=== PATIENT | female | born 2000 | race Caucasian/White ===

== ENCOUNTER 2019-04-01 16:12 | Emergency (ER) | payer BC, SELFPAY ==
[2019-04-01 16:18] VITALS: BP 126/84; PULSE 103; RESP 20; TEMP 37.2; O2SAT 100
--- NOTE | 2019-04-01 17:03 | ED.EAR ---
HPI - Ear Problem General Chief complaint: Ear Stated complaint: ear pain Time Seen by Provider: 04/01/19 16:50 Source: patient and RN notes reviewed Mode of arrival: ambulatory History of Present Illness HPI Narrative: Patient presents today with a two-week history of bilateral ear pain, left greater than right. Denies muffled hearing. Reports some cracking and popping in the left ear over the last couple of days. She reports her pain is intermittent and currently rates a 5/10. She has tried no interventions at home prior to arrival. Patient is . MD Complaint: ear pain Related Data Home Medications Medication Instructions Recorded Confirmed PNV cmb#95-ferrous fumarate-FA 1 tablet PO DAILY 04/01/19 04/01/19 [] Allergies Allergy/AdvReac Type Severity Reaction Status Date / Time No Known Allergies Allergy Unverified 11/01/17 14:38 Review of Systems Review of Systems: Narrative: CONSTITUTIONAL: Denies body aches, fever, chills, or sweats. EYES: Denies visual changes, redness, or discharge. ENT: Denies rhinorrhea, congestion, sore throat. + Bilateral ear pain CARDIOVASCULAR: Denies chest pain, palpitations, or edema. RESPIRATORY: Denies cough or dyspnea. GASTROINTESTINAL: Denies abdominal pain, nausea, vomiting, or diarrhea. GENITOURINARY: Denies dysuria or hematuria. SKIN: Denies rash, itching, or wounds. MUSCULOSKELETAL: Denies back pain, joint pain, or myalgia. NEUROLOGIC: Denies headache, numbness, tingling, or weakness. PSYCH: Denies depression or anxiety. PMFSH Comments At time of signature, I have reviewed and agree with nursing past medical, surgical, social and family history unless otherwise noted. Please see nursing chart for further information. There is no relevant family history pertinent to the presenting complaint Exam Narrative: Exam Narrative: GENERAL: Well-appearing, well-nourished, and in no acute distress. HEAD: Normocephalic, atraumatic. EYES: EOMI. No redness or drainage. Conjunctivae normal. ENT: Mucous membranes pink and moist. Nares clear. No rhinorrhea. TMs normal bilaterally. Throat normal. Uvula midline. NECK: Normal AROM. Supple. No lymphadenopathy. CHEST: No respiratory distress. Clear to auscultation. HEART: Regular rate and rhythm. No murmur appreciated. Normal peripheral pulses. EXTREMITIES: Normal range of motion. No edema. SKIN: Warm, dry, no rash. NEURO: No focal deficits. Alert and oriented x3. Gait steady. PSYCH: Normal affect. No signs of depression or anxiety. Course Vital Signs Vital signs: Vital Signs Temperature 98.9 F 04/01/19 16:18 Pulse Rate 103 H 04/01/19 16:18 Respiratory Rate 04/01/19 16:18 Blood Pressure 126/84 04/01/19 16:18 Pulse Oximetry 04/01/19 16:18 Temperature 98.9 F 04/01/19 16:18 Pulse Rate 103 H 04/01/19 16:18 Respiratory Rate 04/01/19 16:18 Blood Pressure 126/84 04/01/19 16:18 Pulse Oximetry 04/01/19 16:18 Reviewed. Pt has been instructed to follow up with her PCP regarding her elevated blood pressure today. Medical Decision Making Differential Diagnosis Differential Diagnosis: Otitis media, otitis externa, ruptured TM, serous otitis, eustachian tube dysfunction Vital Signs Vital Signs: Vital Signs Temperature 98.9 F 04/01/19 16:18 Pulse Rate 103 H 04/01/19 16:18 Respiratory Rate 04/01/19 16:18 Blood Pressure 126/84 04/01/19 16:18 Pulse Oximetry 04/01/19 16:18 Temperature 98.9 F 04/01/19 16:18 Pulse Rate 103 H 04/01/19 16:18 Respiratory Rate 04/01/19 16:18 Blood Pressure 126/84 04/01/19 16:18 Pulse Oximetry 04/01/19 16:18 Critical Care Time Critical Care Time Critical Care Time: No Discharge Plan Discharge Clinical Impression: Acute dysfunction of both eustachian tubes Patient Disposition: Home, Self-Care Condition: Stable Additional Instructions: Use a steroid nasal spray such as Flonase
== END 2019-04-01 17:11 | disposition home or self-care (01) ==
PROVIDERS: Emergency Provider Nurse Practitioner
DX: O99.89 Other specified diseases and conditions complicating pregnancy, childbirth and the puerperium (principal); H69.93 Unspecified Eustachian tube disorder, bilateral; Z3A.10 10 weeks gestation of pregnancy
CPT/HCPCS: 99211; G0463

== ENCOUNTER 2019-04-22 16:17 | Emergency (ER) | payer BC, SELFPAY ==
[2019-04-22 16:23] VITALS: BP 119/71; PULSE 101; RESP 16; TEMP 36.3; O2SAT 100
--- NOTE | 2019-04-22 16:54 | ED.URI ---
HPI - URI/Sore Throat General Chief Complaint: Upper Respiratory Infection Stated Complaint: SINUS CONGESTION Time Seen by Provider: 04/22/19 16:58 Source: patient and RN notes reviewed Mode of arrival: ambulatory Limitations: no limitations History of Present Illness HPI Narrative: 19-year-old female who is 13 weeks presents with concern for left-sided nasal congestion, facial pain, tooth pain, ear pain, discharge. Reports symptoms have been present for several weeks. Reports she was seen here for ear pain at the end of March and has been using Flonase since then with no relief. She MD elicited complaint: nasal congestion Related Data Home Medications Medication Instructions Recorded Confirmed PNV cmb#95-ferrous fumarate-FA 1 tablet PO DAILY 04/01/19 04/01/19 [] Allergies Allergy/AdvReac Type Severity Reaction Status Date / Time No Known Allergies Allergy Unverified 11/01/17 14:38 Review of Systems Review of Systems: Narrative: CONSTITUTIONAL: Denies malaise, chills, sweats, or fever. EYES: Denies visual changes, redness, or discharge. ENT: Reports rhinorrhea, congestion, sinus pain, otalgia. Denies sore throat. CARDIOVASCULAR: Denies chest pain, palpitations, or edema. RESPIRATORY: Denies cough or dyspnea. GASTROINTESTINAL: Denies abdominal pain, nausea, vomiting, diarrhea SKIN: Denies rash or itching. MUSCULOSKELETAL: Denies myalgia. NEUROLOGIC: Denies headache. All systems reviewed & are unremarkable except as noted in HPI and below PMFSH Comments At time of signature, agree with nursing past medical, surgical, social and family history. There is no relevant family history pertinent to the presenting complaint Exam Narrative: Exam Narrative: GENERAL: Well-appearing, well-nourished, and in no acute distress. HEAD: Normocephalic EYES: PERRLA, conjunctivae clear ENT: Nares clear, right-sided turbinates edematous and erythematous, purulent discharge. Right sided sinus tenderness mucous membranes moist. TM pearly sidhu with dull light reflex bilaterally; no tragal tenderness. Oropharynx not erythematous without lesions. Tonsils not enlarged and without exudate, no drooling, no hoarseness, no trismus. Dentition grossly normal. No jaw clicking or popping noted. NECK: Supple. No lymphadenopathy CHEST: Clear to auscultation, breath sounds equal. No wheezing, rhonchi, rales, or stridor. No respiratory distress, speaks in full sentences. HEART: Regular rate and rhythm. No murmur heard. Normal peripheral pulses. SKIN: Warm, dry, no rash. NEURO: Alert and oriented x3. PSYCH: Normal mood and affect Course Course Emergency Course: Patient is aware of diagnosis, understands and agrees to treatment plan. Anticipatory guidance given. Patient agrees to follow-up as directed and is aware of reasons to seek care at the emergency department. Portions of this record may have been created with voice recognition software Vital Signs Vital signs: Vital Signs Temperature 97.4 F L 04/22/19 16:23 Pulse Rate 101 H 04/22/19 16:23 Respiratory Rate 16 04/22/19 16:23 Blood Pressure 119/71 04/22/19 16:23 Pulse Oximetry 100 04/22/19 16:23 Temperature 97.4 F L 04/22/19 16:23 Pulse Rate 101 H 04/22/19 16:23 Respiratory Rate 16 04/22/19 16:23 Blood Pressure 119/71 04/22/19 16:23 Pulse Oximetry 100 04/22/19 16:23 Reviewed. MDM - URI/Sore Throat MDM Narrative Medical decision making narrative: Differential diagnosis considered: Strep pharyngitis, allergic rhinitis, upper respiratory tract infection, sinusitis, rhinosinusitis, nasopharyngitis. viral pharyngitis, otitis media, otitis externa, pneumonia, bronchitis, viral cough syndrome, viral syndrome, and influenza. Exam findings show no acute concerns or changes; patient is non-toxic appearing and is in no distress. Patient is appropriate for outpatient treatment and follow-up. Critical Care Time Critical Care Time Critical Care Time:
== END 2019-04-22 17:14 | disposition home or self-care (01) ==
PROVIDERS: Emergency Provider Nurse Practitioner
DX: J01.90 Acute sinusitis, unspecified (principal)
CPT/HCPCS: 99213; G0463

== ENCOUNTER 2019-05-28 15:20 | Emergency (ER) | payer BC, SELFPAY ==
--- NOTE | ~2019-05-28 | US_ITS ---
EXAMINATION: US right upper quadrant DATE: 05/28/2019 16:31 INDICATION: Right upper quadrant abdominal pain. Nausea. Vomiting. TECHNIQUE: Multiple grayscale and Doppler ultrasound images of the abdomen were obtained. COMPARISON: CT abdomen and pelvis 12/13/2018 FINDINGS: The visualized portions of the head and body of the pancreas are normal. The liver is kamaljit l without focal lesion. There is normal flow in main portal vein. The gallbladder is normal in size. No gallstones or gallbladder wall thickening. There was no sonographic Scott sign. The common duct i s normal and measures 3 mm. IMPRESSION: 1. Normal right upper quadrant ultrasound. Reviewed, dictated and finalized at location [facility].
[2019-05-28 15:27] VITALS: BP 128/69; PULSE 117; RESP 18; TEMP 36.7; O2SAT 100
--- NOTE | 2019-05-28 16:00 | ED.ABDPAIN ---
HPI - Abdominal Pain General Chief Complaint: Abdominal Pain Stated Complaint: ?gb problems-18 wks Time Seen by Provider: 05/28/19 15:30 Source: patient Mode of arrival: ambulatory Limitations: no limitations History of Present Illness HPI narrative: Patient presents with CC of intermittent RUQ pain that has occurred the past two weeks after eating. She reports she told her OBGYN and they stated if she ever had vomiting with the pain to come to the ER. She reports vomiting after breakfast and after lunch today at noon. So she came to the ED. She denies RUQ pain at this time, but she still feels nauseous. Related Data Home Medications Medication Instructions Recorded Confirmed PNV cmb#95-ferrous fumarate-FA 1 tablet PO DAILY 04/01/19 04/01/19 [] Allergies Allergy/AdvReac Type Severity Reaction Status Date / Time No Known Allergies Allergy Verified 05/28/19 15:34 Review of Systems Review of Systems: Narrative: CONSTITUTIONAL: Denies fever, chills, or sweats. EYES: Denies visual changes, redness, or discharge. ENT: Denies rhinorrhea, congestion, sore throat, or otalgia. CARDIOVASCULAR: Denies chest pain, palpitations, or edema. RESPIRATORY: Denies cough or dyspnea. GASTROINTESTINAL: Reports right upper quadrant abdominal pain, nausea, vomiting, denies diarrhea. GENITOURINARY: Denies dysuria or hematuria. SKIN: Denies rash or itching. MUSCULOSKELETAL: Denies back pain, joint pain, or myalgia. NEUROLOGIC: Denies headache, numbness, dizziness, or weakness. PSYCHIATRIC: Denies anxiety or depression. PMFSH Social History Social History Gender identity (if verbalized by the patient): Female Exam Narrative: Exam Narrative: GENERAL: Well-appearing, well-nourished, and in no acute distress. HEAD: Normocephalic, atraumatic. EYES: PERRLA and EOMI. ENT: Nares clear, no rhinorrhea or epistaxis. Mucous membranes moist. Oropharynx without tonsillar hypertrophy exudate or other lesions. Bilateral TMs pearly sidhu nonbulging NECK: Supple. No adenopathy or masses. No carotid bruits or JVD CHEST: Clear to auscultation. No respiratory distress. No wheezes rales or rhonchi HEART: Regular rate and rhythm. ABDOMEN: Soft, nontender, nondistended, normal active bowel sounds. EXTREMITIES: Normal range of motion. No edema. SKIN: Warm, dry, no rash. NEURO: No focal deficits. Alert and oriented x3. PSYCH: Normal mood and affect. Course Vital Signs Vital signs: Vital Signs Temperature 98.1 F 05/28/19 15:27 Pulse Rate 117 H 05/28/19 15:27 Respiratory Rate 18 05/28/19 15:27 Blood Pressure 128/69 05/28/19 15:27 Pulse Oximetry 100 05/28/19 15:27 Temperature 98.1 F 05/28/19 15:27 Pulse Rate 117 H 05/28/19 15:27 Respiratory Rate 18 05/28/19 15:27 Blood Pressure 128/69 05/28/19 15:27 Pulse Oximetry 100 05/28/19 15:27 MDM - Abdominal Pain MDM Narrative Medical decision making narrative: Patient not had any vomiting or pain since being in the emergency department. Patient has been able to handle p.o. fluids. Patient blood work, liver functions, lipase, right upper quadrant ultrasound are negative. Patient given Zofran for nausea and is encouraged to drink plenty of fluids to stay hydrated and avoid foods that irritate her symptoms. Patient instructed to call her primary care and inform them of her ER visit and schedule follow-up appointment. Patient instructed to return to emergency department if she has any emergent symptoms. . He will Lab Data Result diagrams: 05/28/19 16:04 05/28/19 16:04 Labs: Lab Results 05/28/19 05/28/19 Range/Units 16:04 16:04 WBC 13.0 H (4.5-10.0) K/mm3 RBC 3.98 L (4.2-5.4) M/mm3 Hgb 12.2 (12.0-15.0) g/dL Hct 36.3 L (37.0-47.0) % MCV 91.2 (80-100) fl MCH 30.7 (26-34) pg MCHC 33.6 (32-36) g/dl RDW 12.5 (11.5-14.5) % Plt Count 328 (150-375) k/mm3 MPV 10.1 (7.4-10.4) fl Im
[2019-05-28] MEDS: ONDANSETRON INJ 4 MG/2 ML VIAL IV PUSH (16:02)
[2019-05-28 16:13] LABS: Basophils Percent Auto 0.2 % (0.2-1.2); Eosinophils Absolute Auto 0.1 K/mm3 (0-0.3); Eosinophils Percent Auto 0.5 % (0-4.4); Hematocrit 36.3 % (37.0-47.0); Hemoglobin 12.2 g/dL (12.0-15.0); Immature Granulocyte Absolute 0.05 K/mm3 (0.00-0.031); Immature Granulocyte Percent A 0.4 % (0-0.5); Lymphocytes Absolute Auto 1.24 K/mm3 (0.9-3.2); Lymphocytes Percent Auto 9.6 % (18.3-44.2); Mean Corpuscular HGB Conc 33.6 g/dl (32-36); Mean Corpuscular Hemoglobin 30.7 pg (26-34); Mean Corpuscular Volume 91.2 fl (80-100); Mean Platelet Volume 10.1 fl (7.4-10.4); Monocytes Absolute Auto 0.8 K/mm3 (0.1-0.6); Monocytes Percent Auto 5.8 % (2.6-8.5); Neutrophils Absolute Auto 10.8 K/mm3 (1.3-6.7); Neutrophils Percent Auto 83.5 % (45.5-73.1); Platelet Count Result 328 k/mm3 (150-375); Red Blood Count 3.98 M/mm3 (4.2-5.4); Red Cell Distribution Width 12.5 % (11.5-14.5)
[2019-05-28 16:15] VITALS: BP 114/68; PULSE 78; RESP 16; O2SAT 98
[2019-05-28 16:26] LABS: Alanine Aminotransferase 18 U/L (4-35); Albumin Level 4.2 g/dL (3.5-5.1); Alkaline Phosphatase 89 U/L (38-126); Aspartate Amino Transferase 22 U/L (14-36); Bilirubin,Total 0.2 mg/dL (0.2-1.3); Blood Urea Nitrogen 7 mg/dL (7-17); Carbon Dioxide 23 mmol/L (22-30); Chloride 101 mmol/L (98-107); Estimated CRCL calculation 231 ml/min; Estimated Glomerular Filt Rate > 60; Glucose 86 mg/dL (65-105); Lipase 55 U/L (23-300); Potassium 3.4 mmol/L (3.4-5.0); Sodium 134 mmol/L (137-145)
[2019-05-28 17:12] VITALS: BP 111/65; PULSE 88; RESP 14; O2SAT 100
== END 2019-05-28 17:19 | disposition home or self-care (01) ==
PROVIDERS: Physician Assistant; Emergency Provider Emergency Medicine
DX: R11.2 Nausea with vomiting, unspecified (principal)
CPT/HCPCS: 36415; 76705; 80053; 83690; 85025; 96374; 99284; J2405

== ENCOUNTER 2019-08-08 19:22 | Observation (INO) | payer OTHER, BC, SELFPAY ==
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
[2019-08-08 19:29] VITALS: BP 132/78; PULSE 131; RESP 20; TEMP 37.6; O2SAT 99
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
[2019-08-08 21:09] VITALS: BP 128/84; PULSE 120; RESP 18; O2SAT 98
[2019-08-08 21:20] VITALS: TEMP 36.6
[2019-08-08 21:22] VITALS: BP 138/63; PULSE 117
[2019-08-08 21:26] VITALS: BMI 36.6
[2019-08-08 22:21] LABS: Hematocrit 32.5 % (37.0-47.0); Hemoglobin 11.3 g/dL (12.0-15.0); Mean Corpuscular HGB Conc 34.8 g/dl (32-36); Mean Corpuscular Hemoglobin 31.7 pg (26-34); Mean Corpuscular Volume 91.3 fl (80-100); Mean Platelet Volume 9.9 fl (7.4-10.4); Platelet Count Result 299 k/mm3 (150-375); Red Blood Count 3.56 M/mm3 (4.2-5.4); Red Cell Distribution Width 12.3 % (11.5-14.5); White Blood Count 13.3 K/mm3 (4.5-10.0)
[2019-08-08 22:39] LABS: Prothrombin Time 12.6 Seconds (11.1-14.7)
[2019-08-08 22:40] LABS: Partial Thromboplastin Time 26.9 SECONDS (22.3-36.8)
[2019-08-08 22:49] LABS: Fibrinogen 353 mg/dl (215-510)
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
[2019-08-09 03:00] VITALS: TEMP 36.5
[2019-08-09 03:02] VITALS: BP 89/36; PULSE 90
[2019-08-09 07:23] VITALS: BP 127/82; PULSE 97; TEMP 36.7
--- NOTE | 2019-08-09 08:19 | PC.NURSE ---
Spoke with Dr. Stovall, US and labs reveiwed. Patient may be discharged to home, follow up in clinic next week.
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
== END 2019-08-09 08:35 | disposition home or self-care (01) ==
LOC: ANHED 21:02 → ANHOBPP 21:16
PROVIDERS: Admitting Provider Obstetrics & Gynecology; Emergency Provider Emergency Medicine; Visit Provider Obstetrics & Gynecology
DX: Z04.1 Encounter for examination and observation following transport accident (principal); S30.1XXA Contusion of abdominal wall, initial encounter; O26.93 Pregnancy related conditions, unspecified, third trimester; V89.2XXA Person injured in unspecified motor-vehicle accident, traffic, initial encounter; Z3A.29 29 weeks gestation of pregnancy
CPT/HCPCS: 36415; 76815; 85027; 85384; 85460; 85610; 85730; 86850; 86900; 86901; 99285; G0378; G0379

== ENCOUNTER 2019-10-22 22:07 | Inpatient (IN) | payer BC, SELFPAY ==
[2019-10-22 22:40] VITALS: BMI 37.5
--- NOTE | 2019-10-22 22:58 | LDADM ---
This patient, Juliette Chew, was admitted to Labor/Delivery/Recovery 106 on 10/22/19 at 22:07. Plans for labor, pain management and were discussed with patient. Patient/family oriented to hospital policies and general routines including ID bracelet, bed and alarms, visiting hours, pain management, procedures, bathroom and other care routines, personal items, smoking policy, room service/diet and guest tray routines, security routines, and visiting hours. Patient/Family are encouraged to report perceived risks to care and to ask questions if they do not understand what they are told or what they should do. See OBIX for further documentation.
[2019-10-22 23:03] VITALS: BP 112/70; PULSE 97; TEMP 36.4
[2019-10-22] MEDS: DINOPROSTONE 10 MG VAG INSERT VAGINAL (23:03)
[2019-10-22 23:04] LABS: Basophils Percent Auto 0.1 % (0.2-1.2); Eosinophils Absolute Auto 0.1 K/mm3 (0-0.3); Eosinophils Percent Auto 0.8 % (0-4.4); Hematocrit 34.8 % (37.0-47.0); Hemoglobin 12.1 g/dL (12.0-15.0); Immature Granulocyte Absolute 0.03 K/mm3 (0.00-0.031); Immature Granulocyte Percent A 0.3 % (0-0.5); Lymphocytes Absolute Auto 2.15 K/mm3 (0.9-3.2); Lymphocytes Percent Auto 24.4 % (18.3-44.2); Mean Corpuscular HGB Conc 34.8 g/dl (32-36); Mean Corpuscular Hemoglobin 31.5 pg (26-34); Mean Corpuscular Volume 90.6 fl (80-100); Monocytes Absolute Auto 0.6 K/mm3 (0.1-0.6); Neutrophils Absolute Auto 5.9 K/mm3 (1.3-6.7); Neutrophils Percent Auto 67.4 % (45.5-73.1); Platelet Count Result 259 k/mm3 (150-375); Red Blood Count 3.84 M/mm3 (4.2-5.4); Red Cell Distribution Width 12.4 % (11.5-14.5); White Blood Count 8.8 K/mm3 (4.5-10.0)
[2019-10-23] VITALS (190 sets, daily range): BP systolic 103–144; BP diastolic 49–120; PULSE 66–113; RESP 16–20; TEMP 36.5–37.2; O2SAT 96–100
--- NOTE | 2019-10-23 00:14 | WPDANESEPP ---
Anes - Eval Pre Procedure Procedure: Labor epidural Date/Time: 10/23/19 00:14 Surgeon: Vargas Preop Diagnosis: Abd pain with patient Pre Op Diagnosis: Pre-admit Patient Data Age: 19 Gender: F Height: 5 ft 2 in Weight: 93 kg Last Vital Signs Temp 97.5 F L 10/22/19 23:03 Pulse 98 10/23/19 00:00 BP 105/67 10/23/19 00:00 Allergies Allergy/AdvReac Type Severity Reaction Status Date / Time No Known Allergies Allergy Verified 08/08/19 19:37 Home Medications Medication Instructions Recorded Confirmed Type PNV cmb#95-ferrous fumarate-FA 1 tablet PO DAILY 04/01/19 08/09/19 History [] valacyclovir BID 09/28/19 History Laboratory Tests 10/22/19 10/22/19 22:36 22:36 WBC 8.8 K/mm3 K/mm3 (4.5-10.0) RBC 3.84 M/mm3 L M/mm3 (4.2-5.4) Hgb 12.1 g/dL g/dL (12.0-15.0) Hct 34.8 % L % (37.0-47.0) MCV 90.6 fl fl (80-100) MCH 31.5 pg pg (26-34) MCHC 34.8 g/dl g/dl (32-36) RDW 12.4 % % (11.5-14.5) Plt Count 259 k/mm3 k/mm3 (150-375) MPV 11.0 fl H fl (7.4-10.4) Immature Gran % (Auto) 0.3 % % (0-0.5) Neut % (Auto) 67.4 % % (45.5-73.1) Lymph % (Auto) 24.4 % % (18.3-44.2) [place] % (Auto) 7.0 % % (2.6-8.5) Eos % (Auto) 0.8 % % (0-4.4) Baso % (Auto) 0.1 % L % (0.2-1.2) Lymph # (Auto) 2.15 K/mm3 K/mm3 (0.9-3.2) [place] # (Auto) 0.6 K/mm3 K/mm3 (0.1-0.6) Eos # (Auto) 0.1 K/mm3 K/mm3 (0-0.3) Baso # (Auto) 0.0 K/mm3 K/mm3 (0.0-0.1) Abs Immat Gran (auto) 0.03 K/mm3 K/mm3 (0.00-0.031) Absolute Neuts (auto) 5.9 K/mm3 K/mm3 (1.3-6.7) Absolute Nucleated RBC 0.0 K/mm3 K/mm3 (0.0-0.012) Nucleated RBC % 0.0 % % (0.0-0.2) RPR Pending Patient hx anesthesia problems: none Family hx anesthesia problems: none PMFSH Past Medical History Medical History Obesity Surgical History Surgical History No pertinent past surgical history Family History Family History Mother Hypertension Grandparent Diabetes mellitus Social History Social History Smoking status: Former smoker Tobacco type: cigarettes Smoking end date: 02/20/19 Additional smoking assessment comments: pt states socially vaped Substance use: never Gender identity (if verbalized by the patient): Female Spiritual care concerns: No Exam Day of Procedure 10/23/19 00:14 Patient weight: obese Neurological: alert and oriented
[2019-10-23] MEDS: LACTATED RINGERS 1,000 ML 125 ML IV CONT ×5 (08:19→20:20)
[2019-10-23] MEDS: OXYTOCIN 30 UNITS/NS 500 ML 30 UNITS/500 ML BAG 6 UNITS IV CONT (08:19)
[2019-10-23 08:29] LABS: Rapid Plasma Reagin Non-Reactive (NonReactive)
--- NOTE | 2019-10-23 22:42 | PM.IMHP ---
H&P: HPI History of Present Illness Date/Time: 10/23/19 22:42 Chief complaint: Pre-admit Narrative: Juliette Chew is a 19 year old female 1 presents at39+ weeks for elective induction of labor. Underwent a Cervidil induction with amniotomy. 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 Discussed options and patient agrees to proceed with delivery. Review of Systems Review of Systems: All systems reviewed & are unremarkable except as noted in HPI and below PMFSH Past Medical History Medical History Obesity Surgical History Surgical History No pertinent past surgical history Family History Family History Mother Hypertension Grandparent Diabetes mellitus Social History Social History Smoking status: Former smoker Tobacco type: cigarettes Smoking end date: 02/20/19 Additional smoking assessment comments: pt states socially vaped Substance use: never Gender identity (if verbalized by the patient): Female Spiritual care concerns: No Meds Home Medications and Allergies Home Medications Medication Instructions Recorded Confirmed Type PNV cmb#95-ferrous fumarate-FA 1 tablet PO DAILY 04/01/19 10/23/19 History [] valacyclovir 500 mg PO BID 09/28/19 10/23/19 History Allergies Allergy/AdvReac Type Severity Reaction Status Date / Time No Known Allergies Allergy Verified 08/08/19 19:37 Vital Signs Vital Signs - 24 hr 10/22/19 23:03 10/23/19 00:00 10/23/19 01:00 Temperature 36.4 C L Pulse Rate 97 98 96 Blood Pressure 112/70 105/67 119/80 Pulse Oximetry 10/23/19 02:00 10/23/19 03:00 10/23/19 04:00 Temperature Pulse Rate 98 81 85 Blood Pressure 128/63 114/55 L 105/49 L Pulse Oximetry 10/23/19 05:00 10/23/19 06:00 10/23/19 07:00 Temperature Pulse Rate 86 93 89 Blood Pressure 126/64 124/67 108/66 Pulse Oximetry 10/23/19 07:39 10/23/19 08:00 10/23/19 09:00 Temperature 36.8 C Pulse Rate 94 92 Blood Pressure 115/68 106/63 Pulse Oximetry 10/23/19 09:30 10/23/19 10:00 10/23/19 11:00 Temperature 36.6 C Pulse Rate 97 87 Blood Pressure 121/79 126/90 Pulse Oximetry 10/23/19 11:30 10/23/19 12:00 10/23/19 12:30 Temperature 36.7 C Pulse Rate 83 96 93 Blood Pressure 126/80 129/81 123/78 Pulse Oximetry 10/23/19 13:00 10/23/19 13:01 10/23/19 13:06 Temperature Pulse Rate 102 H Blood Pressure 131/82 Pulse Oximetry 100 100 10/23/19 13:11 10/23/19 13:16 10/23/19 13:18 Temperature Pulse Rate 104 H 93 Blood Pressure 133/80 128/73 Pulse Oximetry 99 99 10/23/19 13:21 10/23/19 13:24 10/23/19 13:25 Temperature 36.9 C Pulse Rate 88 98 Blood Pressure 130/73 130/78 Pulse Oximetry 99 10/23/19 13:26 10/23/19 13:27 10/23/19 13:30 Temperature Pulse Rate 91 89 Blood Pressure 127/81 137/79 Pulse Oximetry 99 10/23/19 13:31 10/23/19 13:33 10/23/19 13:36 Temperature Pulse Rate 90 87 Blood Pressure 133/85 132/74 Pulse Oximetry 100 99 10/23/19 13:39 10/23/19 13:41 10/23/19 13:42 Temperature Pulse Rate 98 78 Blood Pressure 136/79 133/76 Pulse Oximetry 99 10/23/19 13:45 10/23/19 13:46 10/23/19 13:48 Temperature Pulse Rate 101 H 93 Blood Pressure 130/75 127/75 Pulse Oximetry 99 10/23/19 13:51 10/23/19 13:54 10/23/19 13:56 Temperature Pulse Rate 82 89 Blood Pressure 125/76 132/77 Pulse Oximetry 100 99 10/23/19 13:57 10/23/19 14:00 10/23/19 14:01 Temperature Pulse Rate 95 84 Blood Pressure 130/81 124/80 Pulse Oximetry 99 10/23/19 14:03 10/23/19 14:06 10/23/19 14:09 Temperature Pulse Rate 69
--- NOTE | 2019-10-23 22:44 | P.PCNOB_ITS ---
OB - Delivery Note Procedure Procedure: Procedures Operation Date: 10/23/19 21:45 <No data on this case meets the specified criteria> Intrapartal events: Prolonged Active Phase Route of delivery: Indication for instrumentation: other ( arrest of dilation) Specimen: Yes Estimated blood loss (mL): 600 Anesthesia type: Epidural Disposition: PACU Narrative: patient prepped and draped in usual manner for this procedure. Pfannenstiel incision was made in the skin carried down to the fascia which was then extended bilaterally the length of the skin incision. Superiorly and inferiorly dissected away from rectus muscles which were then bluntly dissected and the peritoneum was entered. Bladder flap was developed uterus scored and clear fluid was noted. Vertex was delivered followed by the rest of the baby without difficulty. Cord is clamped cut placenta was removed manually removed. Uterus was exteriorized cleared of membranes and clots and rendered hemostatic using a Monocryl running interlocking manner with good approximation hemostasis noted. Small area of oozing on the left angle was readily rendered hemostatic with a [id number] suture. All subfascial tissue was irrigated and found to be hemostatic prior to closing the fascia with 0 Vicryl from the left angle midline and the right at the midline. Subcutaneous tissue was approximated 0 plain suture and bryan were then used to approximate the skin edges. Immed iate postop condition of mother and baby were both excellent [place] Baby Weeks of gestation at delivery: 39 gender: Female Weight (pounds): 7 Weight (ounces): 8 score one minute: 8 score five minutes: 9
[2019-10-23] MEDS: KETOROLAC 30 MG/ML VIAL (*BKC) IV PUSH (23:33)
[2019-10-24] VITALS (34 sets, daily range): BP systolic 81–125; BP diastolic 52–76; PULSE 62–104; RESP 16–18; TEMP 36.3–36.8; O2SAT 96–100
[2019-10-24] MEDS: OXYTOCIN 30 UNITS/NS 500 ML 30 UNITS/500 ML BAG 125 UNITS IV CONT (00:51)
--- NOTE | 2019-10-24 02:48 | OBPPTRN ---
Patient transferred to post room #284 via stretcher at 0134. Support person present. also arrived per crib and nursery nurse. Oriented to unit, room, information board, rooming in, admission packet and security measures. Patient verbalizes understanding.
[2019-10-24 05:14] LABS: White Blood Count 14.9 K/mm3 (4.5-10.0)
[2019-10-24 05:15] LABS: Basophils Percent Auto 0.3 % (0.2-1.2); Eosinophils Percent Auto 0.1 % (0-4.4); Hemoglobin 10.8 g/dL (12.0-15.0); Immature Granulocyte Absolute 0.06 K/mm3 (0.00-0.031); Immature Granulocyte Percent A 0.4 % (0-0.5); Lymphocytes Absolute Auto 1.74 K/mm3 (0.9-3.2); Lymphocytes Percent Auto 11.7 % (18.3-44.2); Mean Corpuscular HGB Conc 34.8 g/dl (32-36); Mean Corpuscular Hemoglobin 31.5 pg (26-34); Mean Corpuscular Volume 90.4 fl (80-100); Mean Platelet Volume 10.9 fl (7.4-10.4); Monocytes Absolute Auto 1.1 K/mm3 (0.1-0.6); Monocytes Percent Auto 7.4 % (2.6-8.5); Neutrophils Percent Auto 80.1 % (45.5-73.1); Platelet Count Result 233 k/mm3 (150-375); Red Blood Count 3.43 M/mm3 (4.2-5.4); Red Cell Distribution Width 12.1 % (11.5-14.5)
[2019-10-24] MEDS: DEXTROSE 5%/0.45% SOD CHL 1,000 ML 125 ML IV CONT (05:54)
[2019-10-24] MEDS: KETOROLAC 30 MG/ML VIAL (*BKC) IV PUSH (08:41)
[2019-10-24] MEDS: DOCUSATE SODIUM 100 MG CAPSULE PO ×2 (08:41→17:10)
--- NOTE | 2019-10-24 11:02 | WPDANLDPN2 ---
Anes-Prog Note L&D Date/Time: 10/24/19 11:02 Comfortable throughout: labor and section Neuraxial method: epidural Epidural/Spinal procedure site: clean & non-tender Neuro status: Neuro function grossly intact. Cardiovascular status: normal Respiratory status: normal Airway patency: baseline Mental status: baseline Post-Op hydration status: normal Vital Signs: Last Vital Signs Temp 36.8 C 10/24/19 07:00 Pulse 84 10/24/19 07:00 Resp 16 10/24/19 07:00 BP 116/56 L 10/24/19 07:00 Pulse Ox 98 10/24/19 07:00 I/O: Intake & Output 10/23/19 10/24/19 10/24/19 23:59 07:59 15:59 Intake Total 2000 600 Output Total 790 1230 Balance 1210 -630 Post-procedural complaints: none Patient feedback: Patient satisfied with anesthetic care.
--- NOTE | 2019-10-24 11:03 | WPDANLDNPN2 ---
Anes-Prog Note L&D-Neuraxial Date/Time: 10/24/19 11:03 Neuraxial medications: epidural PF morphine Opiod-related complaints: none Patient feedback: Patient satisfied with post-operative pain management.
--- NOTE | 2019-10-24 11:50 | PM.OBPNVD ---
OB - PN: Subj Subjective Date/time seen: 10/24/19 11:51 POD#1 Juliette reports doing well this morning. Her pain is controlled with meds. She has tolerating liquids, but is hungry to eat regular food. Her urbina is still in place and she has not passed flatus. She has not ambulated yet. 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 She is bottle feeding. She denies fever, chills, CP, SOB, BALTAZAR, vision changes, N/V, dizziness or palpitations. OB - PN: Obj Data Labs CBC & Chem 7: 10/24/19 04:23 Labs: Laboratory Results - last 24 hr 10/24/19 04:23 WBC 14.9 H RBC 3.43 L Hgb 10.8 L Hct 31.0 L MCV 90.4 MCH 31.5 MCHC 34.8 RDW 12.1 Plt Count 233 MPV 10.9 H Immature Gran % (Auto) 0.4 Neut % (Auto) 80.1 H Lymph % (Auto) 11.7 L [place] % (Auto) 7.4 Eos % (Auto) 0.1 Baso % (Auto) 0.3 Lymph # (Auto) 1.74 [place] # (Auto) 1.1 H Eos # (Auto) 0.0 Baso # (Auto) 0.0 Abs Immat Gran (auto) 0.06 H Absolute Neuts (auto) 12.0 H Absolute Nucleated RBC 0.0 Nucleated RBC % 0.0 OB - PN A/P Assessment and Plan (1) S/P section: Code(s): Z98.891 - History of uterine scar from previous surgery Status: Acute Plan day: 1 Plan: routine care Comments: - advance diet, remove catheter, ambulated - labs/vitals/exam stable Time Spent With Patient Time: Total time spent is greater than 50% in coordination of care (as documented) at patient's floor/unit and/or counseling patient: Review of Systems Review of Systems: All systems reviewed & are unremarkable except as noted in HPI and below (HPI) Exam Const: General: comfortable, no acute distress, alert and awake Orientation/consciousness: patient oriented x3 Resp: Effort & Inspection: normal respiratory effort Auscultation: clear to auscultation bilaterally Cardio: Rate: regular rate GI: Auscultation: normal bowel sounds Other: non-distended, soft, appropriately tender, pfannenstiel incision covered w/ clean dressing : Other: fundus firm below umbilicus Psych: Appearance: grossly normal Affect: normal affect Attitude: cooperative Judgement: Good judgement present (Psych)
[2019-10-24] MEDS: SIMETHICONE 80 MG TAB.CHEW PO ×2 (13:24→17:10)
[2019-10-24] MEDS: IBUPROFEN 600 MG TABLET PO (17:11)
[2019-10-25] MEDS: SIMETHICONE 80 MG TAB.CHEW PO ×3 (00:53→15:16)
[2019-10-25] MEDS: IBUPROFEN 600 MG TABLET PO ×3 (00:53→14:32)
[2019-10-25] MEDS: TETANUS,DIPHTHERIA,AC PERTUSSIS ADULT (0.5 ML) BOOSTRIX IM (07:37)
[2019-10-25] MEDS: DOCUSATE SODIUM 100 MG CAPSULE PO (07:38)
[2019-10-25 08:12] VITALS: BP 112/71; PULSE 87; RESP 16; TEMP 36.6; O2SAT 99
--- NOTE | 2019-10-25 08:15 | PC.NURSE ---
Patient viewed the discharge video Mother & Baby Care, The First Two Weeks . Patient was given the opportunity and encouraged to ask questions. Patient verbalized understanding of information shared and has been given the mother/baby guide for home reference.
--- NOTE | 2019-10-26 12:53 | PM.OBDSVD ---
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 Status: Acute OB - DS: Summary OB Procedures : None OB Procedures Intrapartum: low cervical, transverse OB Procedures: : None Peripartum Data Infant Delivery Method: Section Procedures: Procedures Operation Date: 10/23/19 21:45 Actual Procedures Side Surgeon p Section Not Applicable Jack Kaye MD complications: none [place] 1: Gender: Female Disposition of : home Status at Discharge Functional status at discharge: independent ambulation Overall status at discharge: patient is back to baseline Time Spent with Patient Time attestation: Total time spent providing and/or coordinating discharge services: Exam Const: General: comfortable, no acute distress, alert and awake Orientation/consciousness: patient oriented x3 Limitations: no limitations Resp: Effort & Inspection: normal respiratory effort Auscultation: clear to auscultation bilaterally Cardio: Rate: regular rate GI: Inspection: non-distended GI Palp: Yes Soft to palpation and No Tenderness to palpation present (GI) Auscultation: normal bowel sounds Psych: Appearance: grossly normal Affect: normal affect Attitude: cooperative Judgement: Good judgement present (Psych) DS: Data Data Completed and Pending Pending studies at discharge: Pending at discharge 10/23/19 23:25 Surgical [PTH] Routine Discharge Plan Discharge Attending physician on discharge: Christy Garcia Discharging Clinician: Christy Garcia Anticipated Discharge Date/Time: 10/25/19 17:00 Patient Disposition: Home, Self-Care Activity: pelvic rest Diet: regular Discharge Instructions: Education: Mom and Baby Guide Given to: Mother Follow-Up: Call your delivering provider's office for an appointment to be seen in: 1 Week Mom and baby should come to the [facility] for the follow-up appointment. Appointment Date/Time: Sunday, October 27, 2019 at 11:00 am What to expect at your follow-up visit: Blood Pressure Check Physical Assessment Call [phone] if you are unable to keep your appointment time. BREAST CARE: * Wear a snug supportive bra. * For engorgement discomfort: Bottle Feeding: * May apply ice packs ABDOMINAL INCISION: (if applicable) * Allow incision to air dry * Do NOT use lotions for powders on your incision * When showering, allow soap and water to run over the incision, but do not wash incision EPISIOTOMY/PERINEAL CARE: * Change your pad frequently throughout the day * You may take sitz baths several times a day (fill your bathtub with warm water and soak for 20 minutes.) Do NOT bathe in the water * No tub baths until seen by your physician - You may shower ACTIVITY: * Rest as much as possible. * Do not exercise or lift anything heavier than your baby (such as laundry or other children.) * Avoid stairs or driving as much as possible. * Do not put anything into the vagina. No douching, tampons, or sexual activity until seen by physician. NOTIFY PHYSICIAN IF YOU HAVE ANY QUESTIONS OR IF ANY OF THE FOLLOWING SYMPTOMS OCCUR: * If your incision becomes red, swollen, or more painful than what you have experienced in the hospital. * If your vaginal bleeding becomes foul smelling. * If your vaginal bleeding becomes more heavy than a period or if your bleeding changes from pink to bright red. However, you may pass an occasional walnut-sized clot once or twice for the first week . * If you experience a sharp, shooting pain in you calves. *
--- NOTE | 2019-10-26 14:48 | PM.OBDSVD ---
DS: Admitting Diagnosis Admitting Diagnosis Admitting Diagnosis: Pre-admit OB - DS: Summary OB Procedures : None OB Procedures Intrapartum: OB Procedures: : None Peripartum Data Procedures: Procedures Operation Date: 10/23/19 21:45 Actual Procedures Side Surgeon p Section Not Applicable Jack Kaye MD Time Spent with Patient Time attestation: Total time spent providing and/or coordinating discharge services: DS: Data Data Completed and Pending Pending studies at discharge: Pending at discharge 10/23/19 23:25 Surgical [PTH] Routine Discharge Plan Discharge Attending physician on discharge: Christy Garcia Discharging Clinician: Christy Garcia Anticipated Discharge Date/Time: 10/25/19 17:00 Patient Disposition: Home, Self-Care Activity: pelvic rest Diet: regular Discharge Instructions: Education: Mom and Baby Guide Given to: Mother Follow-Up: Call your delivering provider's office for an appointment to be seen in: 1 Week Mom and baby should come to the [facility] for the follow-up appointment. Appointment Date/Time: Sunday, October 27, 2019 at 11:00 am What to expect at your follow-up visit: Blood Pressure Check Physical Assessment Call [phone] if you are unable to keep your appointment time. BREAST CARE: * Wear a snug supportive bra. * For engorgement discomfort: Bottle Feeding: * May apply ice packs ABDOMINAL INCISION: (if applicable) * Allow incision to air dry * Do NOT use lotions for powders on your incision * When showering, allow soap and water to run over the incision, but do not wash incision EPISIOTOMY/PERINEAL CARE: * Change your pad frequently throughout the day * You may take sitz baths several times a day (fill your bathtub with warm water and soak for 20 minutes.) Do NOT bathe in the water * No tub baths until seen by your physician - You may shower ACTIVITY: * Rest as much as possible. * Do not exercise or lift anything heavier than your baby (such as laundry or other children.) * Avoid stairs or driving as much as possible. * Do not put anything into the vagina. No douching, tampons, or sexual activity until seen by physician. NOTIFY PHYSICIAN IF YOU HAVE ANY QUESTIONS OR IF ANY OF THE FOLLOWING SYMPTOMS OCCUR: * If your incision becomes red, swollen, or more painful than what you have experienced in the hospital. * If your vaginal bleeding becomes foul smelling. * If your vaginal bleeding becomes more heavy than a period or if your bleeding changes from pink to bright red. However, you may pass an occasional walnut-sized clot once or twice for the first week . * If you experience a sharp, shooting pain in you calves. * If you discover a hard, reddened area on your breast or if you experience flu-like symptoms. DIET: * Eat regular, well-balanced meals. * Drink plenty of fluids daily. No heavy lifting greater than 10 pounds for 6 weeks Patient Instructions: Secondhand Smoke Exposure in Children (GEN) Stand Alone Forms: General Discharge Information Follow-up/Referrals: Jack Kaye MD [Physician] - 1 Week (for staple removal) Discharge Medications: New docusate sodium 100 mg Capsule 100 mg PO BID 20 Days Qty: 40 RF: 0 acetaminophen [Mapap (acetaminophen)] 325 mg Tablet 650 mg PO Q6H PRN (Reason: Mild Pain (1-3)) 10 Days Qty: 20 RF: 0 hydrocodone-acetaminophen 5-325 mg Tablet 1 tablet PO Q4-6H MDD 6 tabs PRN (Reason: Moderate Pain (4-6)) 3 Days Qty: 15 RF: 0 ibuprofen 600 mg Tablet 600 mg PO Q6H PRN (Reason: Cramping) 10 Days Qty: 40 RF: 0 Continued PNV cmb#95-ferrous fumarate-FA [] 28 mg iron- 800 mcg Tablet 1 tablet PO DAILY RF: 0 Discontinued valacyclovir 500 mg tablet 500 mg PO BID RF: 0 Date of admission: 10/22/19 22:07 Primary Care Provider: PHYSICIANBoogie
[2019-10-27 11:41] VITALS: BP 121/79; PULSE 67; RESP 16; TEMP 37.3; O2SAT 99
== END 2019-10-25 17:12 | disposition home or self-care (01) | DRG 788 ==
LOC: ANHLDR 22:15 → ANHOB2 10-25 09:47 → ANHLDR 10-26 13:09 → ANHOB2 10-26 13:09
PROVIDERS: Admitting Provider Obstetrics & Gynecology; Visit Provider Obstetrics & Gynecology
PROC: 10D00Z1 Extraction of Products of Conception, Low, Open Approach (ICD-10-PCS; CPT 59514; principal; 2019-10-23 21:45)
DX: O62.1 Secondary uterine inertia (principal); O76 Abnormality in fetal heart rate and rhythm complicating labor and delivery; Z3A.39 39 weeks gestation of pregnancy; Z37.0 Single live birth; E66.9 Obesity, unspecified; O99.214 Obesity complicating childbirth; Z87.891 Personal history of nicotine dependence
CPT/HCPCS: 36415; 85025; 86592; 86850; 86900; 86901; 88307; 90715; A9270; J0131; J0690; J1885; J2274; J2370; J2405; J2590; J2704; J2795; J3010; J7120

== ENCOUNTER 2022-06-26 11:45 | Emergency (ER) | payer OTHER, SELFPAY ==
[2022-06-26 11:50] VITALS: BP 136/90; PULSE 102; RESP 16; TEMP 36.4; O2SAT 100
--- NOTE | 2022-06-26 12:43 | ED.NAVMDI ---
HPI - Nausea/Vomiting/Diarrhea General Chief complaint: Nausea/Vomiting/Diarrhea Stated complaint: lightheaded Time Seen by Provider: 06/26/22 12:31 History of Present Illness HPI Narrative: Patient is a 77 female here for evaluation of nausea over the past month in addition to some lightheadedness. Today she had an episode of vomiting which prompted her ED evaluation. She denies any abdominal pain, fevers, diarrhea, constipation. She states that she felt this way when she was in the past, she is sexually active, no control and has not yet taken a test. She states she had a menstrual cycle a week ago that was normal for her. No history of abdominal surgeries. Related Data Home Medications Medication Instructions Recorded Confirmed vit no.95-ferrous 1 tablet PO DAILY 04/01/19 10/23/19 fumarate 28 mg-folic acid 800 mcg tablet () Allergies Allergy/AdvReac Type Severity Reaction Status Date / Time No Known Allergies Allergy Verified 06/26/22 12:20 Review of Systems Review of Systems: Gen.: Denies fevers or chills Eyes: Denies eye pain or visual change ENT: Denies congestion Respiratory: Denies shortness of breath or cough CV: Denies chest pain or palpitations GI: Reports nausea and vomiting. Denies abdominal pain or diarrhea denies burning, urgency, frequency or hematuria Musculoskeletal: Denies back pain or muscle pain Neuro: Denies numbness, tingling, weakness or focal weakness Skin: Denies rash Except as documented, all other systems reviewed and negative [facility] Past Medical History Medical History (Updated 06/26/22 @ 14:06 by Charleen Finch PA-C) Obesity Surgical History Surgical History No pertinent past surgical history Family History Family History Mother Hypertension Grandparent Diabetes mellitus Social History Social History Smoking status: Former smoker Tobacco type: cigarettes Smoking end date: 02/20/19 Additional smoking assessment comments: pt states socially vaped Substance use: never Gender identity (if verbalized by the patient): Female Spiritual care concerns: No Exam Narrative: APPEARANCE: Well appearing, no pain in distress, well-nourished. Head: Normocephalic and atraumatic. EYES: PERRLA/EOMI, conjunctivae clear NOSE: No nasal drainage EARS: External ear normal in appearance THROAT: Oropharynx is clear. Mucous membranes are moist. NECK: Supple. No adenopathy, no masses. RESPIRATORY: Airway patent, respirations nonlabored. Clear to auscultation bilaterally, no rales, rhonchi, wheezing. CARDIOVASCULAR: Regular rate and rhythm without murmurs, rubs, or gallops. ABDOMINAL: Normoactive bowel sounds. Soft, nontender, nondistended. No rebound tenderness or guarding. MUSCULOSKELETAL: Extremities are warm and well-perfused. Moves all extremities well. No edema. NEURO: Normal speech. No focal neurologic deficits. SKIN: Skin is warm and dry. No rashes. PSYCHIATRIC: Normal affect/mood.. Course Vital Signs Vital signs: Vital Signs Temperature 97.6 F 06/26/22 11:50 Pulse Rate 102 H 06/26/22 11:50 Respiratory Rate 16 06/26/22 11:50 Blood Pressure 136/90 06/26/22 11:50 Pulse Oximetry 100 06/26/22 11:50 Temperature 97.6 F 06/26/22 11:50 Pulse Rate 85 06/26/22 14:19 Respiratory Rate 17 06/26/22 14:19 Blood Pressure 118/79 06/26/22 14:19 Pulse Oximetry 99 06/26/22 14:19 MDM - Nausea/Vomiting/Diarrhea MDM Narrative Medical decision making narrative: Patient is a 22-year-old female here for evaluation of nausea and lightheadedness over the past month. She is nontoxic in appearance and has normal vital signs. She has no abdominal tenderness on exam or has any complaints of abdominal pain.
[2022-06-26 12:59] LABS: Appearance Urine Clear (Clear); Bacteria Urine Rare /hpf; Bilirubin Urine Negative (Negative); Blood Urine Negative (Negative); Color Urine Yellow (Yellow); Glucose Urine UA Negative (Negative); Ketones Urine Negative (Negative); Leukocyte Esterase Ur Trace LEU/UL (Negative); Nitrate Urine Negative (Negative); Non Pathogenic Casts 0-2; Protein Urine Negative (Negative); RBC Urine 0-2 /hpf (0-2); Squamous Epithelial Cell Urine Occasional /hpf (Few); Urobilinogen Urine 0.2 mg/dL (<2.0); pH Urine 5.5 (5.0-9.0)
[2022-06-26 13:01] LABS: Add Urine Microscopic? YES
[2022-06-26] MEDS: ONDANSETRON INJ 4 MG/2 ML VIAL IV PUSH (13:11)
[2022-06-26] MEDS: SODIUM CHLORIDE 0.9% IV 1,000 ML 999 ML IV CONT (13:11)
[2022-06-26 13:19] LABS: Basophils Percent Auto 0.3 % (0.2-1.2); Eosinophils Absolute Auto 0.1 K/mm3 (0-0.3); Eosinophils Percent Auto 0.9 % (0-4.4); Hematocrit 40.1 % (37.0-47.0); Hemoglobin 13.8 g/dL (12.0-15.0); Immature Granulocyte Absolute 0.05 K/mm3 (0.00-0.031); Immature Granulocyte Percent A 0.3 % (0-0.5); Lymphocytes Absolute Auto 1.81 K/mm3 (0.9-3.2); Lymphocytes Percent Auto 12.1 % (18.3-44.2); Mean Corpuscular HGB Conc 34.4 g/dl (32-36); Mean Corpuscular Hemoglobin 31.2 pg (26-34); Mean Corpuscular Volume 90.5 fl (80-100); Mean Platelet Volume 9.4 fl (7.4-10.4); Monocytes Percent Auto 6.7 % (2.6-8.5); Neutrophils Absolute Auto 11.9 K/mm3 (1.3-6.7); Neutrophils Percent Auto 79.7 % (45.5-73.1); Platelet Count Result 325 k/mm3 (150-375); Red Blood Count 4.43 M/mm3 (4.2-5.4); Red Cell Distribution Width 11.7 % (11.5-14.5)
[2022-06-26 13:22] VITALS: PULSE 89; O2SAT 100
[2022-06-26 13:28] LABS: Alanine Aminotransferase 35 U/L (6-35); Albumin Level 4.4 g/dL (3.5-5.1); Alkaline Phosphatase 104 U/L (38-126); Anion Gap 5 mmol/L (8-16); Aspartate Amino Transferase 29 U/L (14-36); Bilirubin,Total 0.4 mg/dL (0.2-1.3); Blood Urea Nitrogen 11 mg/dL (7-17); Calcium 8.9 mg/dL (8.4-10.2); Carbon Dioxide 29 mmol/L (22-30); Chloride 103 mmol/L (98-107); Estimated CRCL calculation 153 ml/min; Estimated Glomerular Filt Rate > 60; Glucose 109 mg/dL (65-110); Lipase 53 U/L (23-300); Potassium 3.8 mmol/L (3.4-5.0); Sodium 137 mmol/L (137-145)
[2022-06-26 14:19] VITALS: BP 118/79; PULSE 85; RESP 17; O2SAT 99
== END 2022-06-26 14:20 | disposition home or self-care (01) ==
PROVIDERS: Emergency Provider Physician Assistant; PCP Family Medicine Sports Medicine
DX: N39.0 Urinary tract infection, site not specified (principal)
CPT/HCPCS: 36415; 80053; 81001; 81025; 83690; 85025; 87086; 96361; 96374; 99284; J2405; J7030

== ENCOUNTER 2022-08-02 08:41 | Outpatient (CLI) | payer OTHER, SELFPAY ==
--- NOTE | ~2022-08-02 | CT_ITS ---
CT of the Abdomen and Pelvis: Indication: Abdominal pain Technique: 2.5 mm axial scans were obtained through the abdomen and pelvis following intravenous adm inistration of 100 cc of Omnipaque 350. Dose reduction technique was used on this scan by utilizing a utomated exposure control and iterative reconstruction technique. The dose-length product (DLP) was 1 128.31 mGy-cm. COMPARISON: 11/13/2018 Findings: Scans through the lung bases are unremarkable. There is probable diffuse fatty infiltration of liver. The spleen, pancreas, gallbladder, adrenals an d kidneys are within normal limits. No evidence of aortic aneurysm. No lymphadenopathy. No bowel obstruction or bowel wall thickening. There is no evidence to suggest acute appendicitis. Images through the pelvis were performed. Urinary bladder unremarkable. No pelvic mass seen. No ascit es. Impression: Diffuse fatty infiltration of liver. Reviewed, dictated and finalized at [facility]. Impression: Diffuse fatty infiltration of liver.
== END 2022-08-02 08:42 ==
PROVIDERS: PCP Family Medicine Sports Medicine; Visit Provider Family Medicine Sports Medicine
DX: R11.0 Nausea (principal); R10.9 Unspecified abdominal pain; R70.0 Elevated erythrocyte sedimentation rate; K76.0 Fatty (change of) liver, not elsewhere classified
CPT/HCPCS: 74177; Q9967

== ENCOUNTER 2022-10-09 15:38 | Outpatient (CLI) | payer OTHER, SELFPAY ==
--- NOTE | ~2022-10-09 | US_ITS ---
EXAMINATION: US axilla RT HISTORY: Right axillary pain and swelling TECHNIQUE: Targeted sonographic images of the right axilla are obtained. FINDINGS: No sonographic correlate is identified for the reported pain of the right axilla. Images of the left axilla obtained for comparison demonstrate no asymmetric findings. IMPRESSION: No specific sonographic correlate is identified for the patient's reported right axillary pain. Furth er evaluation at this time should be based on clinical assessment. Continued follow-up physical exami nation is recommended. BI-RADS Category 1: Negative Reviewed, dictated and finalized at location A. IMPRESSION: No specific sonographic correlate is identified for the patient's reported righ t axillary pain. Further evaluation at this time should be based on clinical as sessment. Continued follow-up physical examination is recommended. BI-RADS Category 1: Negative
== END 2022-10-09 15:39 | disposition home or self-care (01) ==
PROVIDERS: Visit Provider Nurse Practitioner Obstetrics & Gynecology
DX: M79.621 Pain in right upper arm (principal)
CPT/HCPCS: 76882

== ENCOUNTER 2024-07-14 23:32 | Emergency (ER) | payer OTHER, SELFPAY ==
--- OUTSIDE RECORDS SUMMARY | 2024-07-14 23:34 | XMS_ITS | Clinical Summary ---
Author Organization [facility] Address [address] [place] [address] Care Team Providers Care Software Test Engineer Name Role Phone Marietta Gay MOLD CARPENTER Primary Care Provider [phone] Allergies No known active allergies Medications FLUoxetine (PROZAC) 20 MG tabletIndicatio ns:COLE (generalized anxiety disorder) Take 1 tablet (20 mg total) by mouth daily. 30 tablet 2 5 07/04/19 25 Discontinued loratadine (CLARITIN) 10 MG tabletIndicatio ns:Middle ear effusion, bilateral Take 1 tablet (10 mg total) by mouth daily. 30 tablet 2 5 07/04/19 25 Discontinued Active Problems Problem Noted Date Diagnosed Date COLE (generalized anxiety disorder) 05/15/2024 Middle ear effusion, bilateral 05/15/2024 Encounters Date Type Department Care Team Description 07/13/2024 [employer] [facility] [address] [place] [id number] Marietta Gay NP Back pain 07/03/2024 8:20 AM CDT [facility] [place] [address] [facility] [address] [place] [address] Marietta Gay NP Medication Check 07/03/2024 Travel 05/15/2024 10:20 AM CDT [facility] [place] [address] [facility] [address] [place] [address] Marietta Gay NP New Patient; Anxiety 05/15/2024 Travel from Last 3 Months Family History Medical History Relation Comments Diabetes Maternal Aunt Diabetes Maternal Grandfather Heart Disease Maternal Grandfather Diabetes Maternal Grandmother Hypertension Mother Relation Status Comments Maternal Aunt Maternal Grandfather Maternal Grandmother Mother Social History Tobacco Use Types Packs/Day Years Used Date Smoking Tobacco: Every Day Cigarettes Passive Smoke Exposure: Current Smokeless Tobacco: Never Tobacco Cessation:Ready to Q uit: Yes; Counseling Given: Yes Comments:1 cigarette per day when she gets home from work Alcohol Use Standard Drinks/Week Comments Yes 6.7 (1 standard drink = 0.6 oz p ure alcohol) PHQ-2 Answer Date Recorded Patient Health Questionnaire-2 Score 0 05/15/2024 Comments No Sex and Gender Information Value Date Recorded Sex Assigned at Female 05/15/2024 10:23 AM CDT 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 Gender Identity Female 05/15/2024 10:23 AM CDT Sexual Orientation Straight 05/15/2024 10 :23 AM CDT Last Filed Vital Signs Vital Sign Reading Time Taken Comments Blood Pressure 122/84 07/03/2024 8:56 AM CDT Pulse 96 07/03/2024 8:25 AM CDT Temperature 36.4 C (97.6 F) 07/03/2024 8:25 AM CDT Respiratory Rate 18 07/03/2024 8:25 AM CDT Oxygen Saturation 97% 07/03/2024 8:25 AM CDT Inhaled Oxygen Concentration - - Weight 100.1 kg (220 lb 9.6 oz) 07/03/2024 8:25 AM CDT Height 157.5 cm (5' 2 ) 07/03/2024 8:25 AM CDT Body Mass Index 40.35 07/03/2024 8:25 AM CDT Plan of Treatment Upcoming Encounters Date Type Department Care Team (Late st Contact Info) Description 07/16/2024 9:00 AM CDT Office Visit [facility] [place] [address] [facility] [address] [place] [address] Marietta Gay NP [address] [place] [address] 07/24/2024 7:40 AM CDT Laboratory Only [facility] [place] [address] [place] [address] Marietta Gay, MOLD CARPENTER [address] [place] [address] 07/31/2024 10:20 AM CDT Office Visit [facility] [place] [address] [place] [address] Marietta Gay MOLD CARPENTER [address] [facility] [address] [place] [address] Health Maintenance Due Date Last Done Comments Annual Physical 2001 Hepatitis C 02/17/2016 Pneumococcal Vaccine: Pediatrics (0 to 5 Years) and At-Risk Patients (6 to 49 Years) (1 of 2 - PCV) 2017 COVID-19 Vaccine ( - season) 2023 Cervical Cancer Screening Pap Smear (Age 21 to 29) Every 3 Years 08/31/2024 08/31/2021, 08/31/2021, 08/31/2021, Additional history exists Cervical Cancer Screening 08/31/2024 DTaP, Tdap and Td Vaccines (7 - Td or Tdap) 10/24/2029 10/25/2019, 10/10/2009, 06/21/2003, Additional history exists Hepatitis B Vaccines Completed 1998, 1998, 1998 Meningococcal Vaccine Aged Out 10/10/2009 No puma lucy eligible based on patient's age to complete this topic HPV Vaccines Completed 09/14/2013, 12/02, 10/06/2012 PHQ-2 (Physician [place]) Completed 05/15/2024 Meningococcal B Vaccine Aged Out No l onger eligible based on patient's age to complete this topic RSV Immunizations Under 20 Months Aged Out No longer eligible based on patient's age to complete this topic Insurance [employer] Care Teams Software Test Engineer Relationship Specialty Start Date End Date Marietta Gay, DEANNE [address] [facility] [address] [place] [address] PCP - General NURSE PRACTITIONER 05/06/24
--- OUTSIDE RECORDS SUMMARY | 2024-07-14 23:34 | XMS_ITS | Data Portability ---
Author Organization [facility] Address [address] [place] [address] Care Team Providers Care Quality Rep Name Role Phone FAUSTINO PIEDRA Primary Care Provider Assessment Encounter Date Assessment Date Assessment LastModified by Organization Details LastModified Time 08/31/2021 08/31/2021 Annual gynecological exam performed. Patient will come back in a year unless there are new symptoms. [email or web address] Not available 08/31/2021 10:40:24 10/02/2022 10/02/2022 Annual gynecological exam performed. Patient will come back in a year unless there are new symptoms. Not available 10/02/2022 16:58:04 Plan of Treatment Reminders Order Date Submit Date Provider Last Modified By Organization Details Last Modified Time Details Appointments None recorded. Lab urinalysis, dipstick 2021 022 [place], [address], [place], [address], 16:27:10 Referral pelvic floor therapy referral 2022 023 [email or web address] [facility], [address] [facility], [address], [place], [address], 18:10:20 Procedures None recorded. Surgeries None recorded. Imaging US, pelvis 2022 023 [email or web address] [place], [address], [place], [address], 3 20:06:59 US, transvagina l 2022 023 [email or web address] , [address], [address], [place], [address], 3 20:06:59 US, axilla 2022 023 [facility], [address], [place], [address], 3 18:09:53 US, pelvis, complete 2022 023 [email or web address] [place], [address], [address], [place], [address], 3 17:23:26 Medication Orders None recorded. Patient TargetsNo targets recorded. Patient InstructionsNo instructions recorded. Reason for Referral Pelvic Floor Therapy Referra l for Pain in pelvis Possible scar tissue lower pelvic/abd; wants to see if tissue mobilization/etc will help this area. Referring Physician: Sylvia Hill, FRONT OFFICE CLERK, Encounter Date: 10/23/2022 Results Created Date Observation Date Name Description Value Unit Range Abnormal Flag Note LastModifiedBy Organization Detail LastModifiedTime 08/15/19 22 08/14/2021 CT/GC AND TRICH OMONA S VAGIN KATY (RRNA ), URINE chlamydia trachomatis, PCR Negati ve negati ve Not Available [facility] (Lab) [address], [place], [address], 08/16/2021 06:57:08 08/15/19 22 08/14/2021 CT/GC AND TRICH OMONA S VAGIN KATY (RRNA ), URINE neisseria gonorrhoeae, PCR Negati ve negati ve Not Available [facility] (Lab) [address], [place], [address], 08/16/2021 06:57:08 08/15/19 22 08/14/2021 CT/GC AND TRICH OMONA S VAGIN KATY (RRNA ), URINE trichomonas vaginalis ribosomal RNA (rrna) Negati ve negati ve Not Available [facility] (Lab) [address] [facility], [place], [address], 08/16/2021 06:57:08 08/15/19 22 08/14/2021 CULTU RE: URINE result report SEE RESULT S BELOW Test: Cultu re: Urine Speci men Sourc e: Urine Voide d Speci men Type: Urine Speci men Date: 2021 4:16 PM Resul t Date: 2021 5:53 AM Resul t Statu s: Final resul t Abnor mal: No Resul ting Lab: [facility] [address] [facility] [address] Tel: CULTU RE ----- ----- ----- --- No growt h in 1 day (dete ction level of 10,00 0 colon ies / ml.) Not Available [facility] (Lab) [address] , [place], [address], 08/16/2021 06:57:09 08/15/19 22 08/14/2021 urina lysis , dipst ick Leukocytes TRACE Not Available [facility] [address], [place], [address], 08/14/2021 16:26:37 08/15/19 22 08/14/2021 urina lysis , dipst ick Nitrite NEGATI VE Not Available [place] [address], [place], [address], 08/14/2021 16:26:37 08/15/19 22 08/14/2021 urina lysis , dipst ick Urobilinogen NEGATI VE Not Available [place] [address], [place], [address], 08/14/2021 16:26:37 08/15/19 22 08/14/2021 urina lysis , dipst ick Protein TRACE Not Available [place] [address], [place], [address], 08/14/2021 16:26:37 08/15/19 22 08/14/2021 urina lysis , dipst ick pH 6 Not Available [place] [address], [place], [address], 08/14/2021 16:26:37 08/15/19 22 08/14/2021 urina lysis , dipst ick Blood trace Not Available [place] [address], [place], [address], 08/14/2021 16:26:37 08/15/19 22 08/14/2021 urina lysis , dipst ick Specific [place] 1.015 Not Available [facility] [address], [place], [address], 08/14/2021 16:26:37 08/15/19 22 08/14/2021 urina lysis , dipst ick Ketone NEGATI VE Not Available [place] [address], [place], [address], 08/14/2021 16:26:37 08/15/19 22 08/14/2021 urina lysis , dipst ick Bilirubin ++ Not Available [facility] [address], [place], [address], 08/14/2021 16:26:37 08/15/19 22 08/14/2021 urina lysis , dipst ick Glucose NEGATI VE Not Available [place] [address], [place], [address], 08/14/2021 16:26:37 08/15/19 22 08/14/2021 urina lysis , dipst ick Appearance CLEAR Not Available [facility] [address], [place], [address], 08/14/2021 16:26:37 08/15/19 22 08/14/2021 urina lysis , dipst ick Color YELLOW Not Available [place] [address], [place], [address], 08/14/2021 16:26:37 09/01/19 22 08/31/2021 URINA LYSIS , WITH MICRO SCOPI C, REFLE X CULTU RE color, urine Yellow colorl ess, light yellow , yellow , dark yellow , straw Not Available [facility] (Lab) [address] [facility], [place], [address], 09/08/2021 11:34:16 09/01/19 22 08/31/2021 URINA LYSIS , WITH MICRO SCOPI C, REFLE X CULTU RE clarity, urine Slight ly Cloudy Not Available [facility] (Lab) [address] [facility], [place], [address], 09/08/2021 11:34:16 09/01/19 22 08/31/2021 URINA LYSIS , WITH MICRO SCOPI C, REFLE X CULTU RE glucose, urine Negati ve mg/dL negati ve Not Available [facility] (Lab) [address] [facility], [place], [address], 09/08/2021 11:34:16 09/01/19 22 08/31/2021 URINA LYSIS , WITH MICRO SCOPI C, REFLE X CULTU RE bilirubin, urine Negati ve mg/dL negati ve Not Available [facility] (Lab) [address] [facility], [place], [address], 09/08/2021 11:34:16 09/01/19 22 08/31/2021 URINA LYSIS , WITH MICRO SCOPI C, REFLE X CULTU RE ketones, urine Negati ve mg/dL negati ve Not Available [facility] (Lab) [address] [place], [address], 09/08/2021 11:34:16 09/01/19 22 08/31/2021 URINA LYSIS , WITH MICRO SCOPI C, REFLE X CULTU RE pH, urine 7.0 . 5.0-9. 0 Not Available [facility] (Lab) [address] [facility], [place], [address], 09/08/2021 11:34:16 09/01/19 22 08/31/2021 URINA LYSIS , WITH MICRO SCOPI C, REFLE X CULTU RE specific gravity, urine 1.013 . 1.001- 1.035 Not Available [facility] (Lab) [address] [facility], [place], [address], 09/08/2021 11:34:16 09/01/19 22 08/31/2021 URINA LYSIS , WITH MICRO SCOPI C, REFLE X CULTU RE blood, urine Negati ve negati ve Not Available [facility] (Lab) [address] [facility], [place], [address], 09/08/2021 11:34:16 09/01/19 22 08/31/2021 URINA LYSIS , WITH MICRO SCOPI C, REFLE X CULTU RE protein, UA Negati ve mg/dL negati ve Not Available [facility] (Lab) [address] [facility], [place], [address], 09/08/2021 11:34:16 09/01/19 22 08/31/2021 URINA LYSIS , WITH MICRO SCOPI C, REFLE X CULTU RE urobilinogen , urine <2.0 mg/dL <2.0 Not Available [facility] (Lab) [address] [place], [address], 09/08/2021 11:34:16 09/01/19 22 08/31/2021 URINA LYSIS , WITH MICRO SCOPI C, REFLE X CULTU RE nitrite, urine Negati ve negati ve Not Available [facility] (Lab) [address] [place], [address], 09/08/2021 11:34:16 09/01/19 22 08/31/2021 URINA LYSIS , WITH MICRO SCOPI C, REFLE X CULTU RE leukocyte esterase, urine Negati ve princess/u L negati ve Not Available [facility] (Lab) [address] [facility], [place], [address], 09/08/2021 11:34:16 09/01/19 22 08/31/2021 URINA LYSIS , WITH MICRO SCOPI C, REFLE X CULTU RE WBC, urine 0-5 /hpf none, 0-5 Not Available [facility] (Lab) [address] [facility], [place], [address], 09/08/2021 11:34:16 09/01/19 22 08/31/2021 URINA LYSIS , WITH MICRO SCOPI C, REFLE X CULTU RE RBC, urine 0-2 /hpf none, 0-2 Not Available [facility] (Lab) [address] [facility], [place], [address], 09/08/2021 11:34:16 09/01/19 22 08/31/2021 URINA LYSIS , WITH MICRO SCOPI C, REFLE X CULTU RE bacteria, urine Trace /hpf none abnormal Not Available [facility] (Lab) [address] [facility], [place], [address], 09/08/2021 11:34:16 09/01/19 22 08/31/2021 URINA LYSIS , WITH MICRO SCOPI C, REFLE X CULTU RE squamous epithelial cells, urine Few /hpf none abnormal Not Available [facility] (Lab) [address] [facility], [place], [address], 09/08/2021 11:34:16 09/01/19 22 08/31/2021 URINA LYSIS , WITH MICRO SCOPI C, REFLE X CULTU RE mucus, urine Trace /hpf none, trace, few Urine Cultu re not perfo rmed per refle x anabella col. Not Available [facility] (Lab) [address] [facility], [place], [address], 09/08/2021 11:34:16 09/01/19 22 08/31/2021 IMAGE GUIDE D PAP, REFLE X HPV IF ASCUS ONLY image guided Pap, reflex HPV ASCUS only SEE RESULT S BELOW CASE REPOR T: Cytol ogy Gynec ologi errol Repor t Case: [id number] Autho radha valdez Provi tushar: Cecelia Barton, DEANNE Colle cted: 08/31 1114 Order ing Locat ion: [place] [facility] Recei key: 09/01 0745 First Scree n: Hannah Arias ay, CT Rescr een: Nithin Hauser Speci men: Scree dianne Pap - Image d, Cervi x STATE MENT OF ADEQU ACY: Satis facto ry for evalu ation Trans forma tion zone compo nent absen t. The absen ce of an endoc ervic al compo nent was confi rmed by an addit ional zuleika kesley. FINAL DIAGN OSIS: Negat aicha for Intra epith elial Lesio n or Mahnaz davies (NIL) . Shift in gerardo sugge stive of bacte rial vagin osis. Elect sherin aguirre d by Nithin Hauser on 022 at 10:32 AM ----- ----- ----- ----- ----- ----- ----- ----- ----- ----- ----- ----- ----- ----- ----- ----- ----- ---- COMME NT: Note: This speci men was revie wed by a Cytot echno logis t and/o r Patho logis t (as indic ated in this repor t) after evalu ation using the Thinp rep Imagi ng Syste m. CLINI ERROL INFOR MATIO N: Menst rual Statu s: LMP (if appli cable ): Clini errol Histo ry/Pr eviou s Pap: Type of Neopl kang (if appli cable ): Signi fican t Clini errol Findi ngs: Other Histo ry: Hormo mary (if appli cable ): PAP EDUCA ALVERTO L NOTE: The Pap Test is a scree dianne test with an inher ent false negat aicha rate. Liqui d-bas ed sampl ing may decre ase, but will not elimi osmel, false negat aicha resul ts. A negat aicha resul t does not precl ude the prese nce and/o r devel opmen t of disea se, since the prese nce of abnor mal cells in the sampl e depen ds on the locat ion of the lesio n and sampl ing techn ique. Duglas nued regul ar scree dianne is the best metho d of cance r preve ntion . If repor adan cytol ogic findi ng do not corre late with physi errol and/o r histo rical findi ngs, furth er inves tigat ion is recom julieta d, as clini javed warra nted. Not Available [facility] (Lab) [address] [facility], [place], [address], 09/08/2021 11:34:17 09/01/19 22 08/31/2021 TRICH OMONA S VAGIN KATY (RRNA ) trichomonas vaginalis ribosomal RNA (rrna) Negati ve negati ve Not Available [facility] (Lab) [address] [facility], [place], [address], 09/08/2021 11:34:17 09/01/19 22 08/31/2021 CT/GC (JANENE) , THINP REP VIAL chlamydia trachomatis, PCR Negati ve negati ve Not Available [facility] (Lab) [address] [facility], [place], [address], 09/08/2021 11:34:18 09/01/19 22 08/31/2021 CT/GC (JANENE) , THINP REP VIAL neisseria gonorrhoeae, PCR Negati ve negati ve Not Available [facility] (Lab) [address] [facility], [place], [address], 09/08/2021 11:34:18 10/12/19 23 10/09/2022 US, axill a No observ ation record ed. [address], [place], [address], 10/12/2022 12:14:14 10/23/19 23 10/22/2022 US, pelvi s No observ ation record ed. [address], [place], [address], 10/22/2022 13:00:48 10/23/19 23 10/22/2022 US, trans vagin al No observ ation record ed. [address], [place], [address], 10/22/2022 13:00:40 10/23/19 23 10/22/2022 US, pelvi s No observ ation record ed. [address] [facility], [place], [address], 11/13/2022 05:41:06 Result Notes None recorded. Problems No Known Problems Procedures Surgical History Date Name Laterality Status Provider Name and Address Organization Details Recorded Time 2 Date of Last Pap Smear completed Lian Christie [facility] 10/02/2022 16:59:38 0 section completed Bee Perales [facility] 08/14/2021 16:26:16 Imaging Results Imaging Date Name Status LastModified by Organization Details LastModified Time 10/09/2022 US, axilla completed [email or web address], [place], [address], 10/12/2022 12:14:14 10/22/2022 US, pelvis completed [email or web address] [place] [address] [address], [place], [address], 10/22/2022 13:00:48 10/22/2022 US, transvaginal completed [email or web address] Barbara farah [address], [place], [address], 10/22/2022 13:00:40 10/22/2022 US, pelvis active [address], [place], [address], 11/13/2022 05:41:06 Procedure Notes None recorded. Medical Equipment None Reported. Allergies No known drug allergies Medications Name Sig Start Date Stop Date Status Note LastModified by Organization Details LastModified Time amoxicill in 500 mg capsule TAKE 1 CAPSULE BY MOUTH TWICE DAILY FOR 10 DAYS 08/31 completed Not Available Not Available Not Available fluconazo le 150 mg tablet take 1 tablet by oral route once every other week 09/30 completed Prescrib ed Elsewher e: No Locat ion: Barbara farah [facility] odify By: jamie lee DateTime : 09/17/19 05:15:00 PM Not Available Not Available Not Available prednison e 20 mg tablet TAKE 3 TABLETS BY MOUTH EVERY DAY FOR 5 DAYS 08/31 completed Not Available Not Available Not Available metronida zole 500 mg tablet TAKE 1 TABLET BY MOUTH TWICE DAILY FOR 7 DAYS 10/02 completed Not Available Not Available Not Available triamcino lone acetonide 0.1 % topical cream APPLY THIN LAYER TOPICALL Y TO THE AFFECTED AREA 2 TO 3 TIMES PER DAY 10/02 completed Not Available Not Available Not Available Valtrex 500 mg tablet take 1 tablet by oral route every 24 hours 08/14 completed Prescrib ed Elsewher e: No^Stop Date: [id number] Locatio n: Barbara farah [facility] odify By: mery mohan DateTime : 01/16/20 01:11:41 PM Not Available Not Available Not Available methylpre dnisolone 4 mg tablets in a dose pack FOLLOW PACKAGE DIRECTIO NS 08/31 completed Not Available Not Available Not Available ondansetr on 4 mg disintegr ating tablet DISSOLVE 1 TABLET ON THE TONGUE EVERY 8 HOURS NEEDED FOR NAUSEA OR VOMITING 10/02 completed Not Available Not Available Not Available fluticaso ne propionat e 50 mcg/actua tion nasal spray,juan david pension SHAKE LIQUID AND USE 1 SPRAY IN EACH NOSTRIL TWICE DAILY NEEDED 08/31 completed Not Available Not Available Not Available amoxicill in 875 mg-potass ium clavulana te 125 mg tablet TAKE 1 TABLET BY MOUTH TWICE DAILY FOR 10 DAYS 10/02 completed Not Available Not Available Not Available Bactrim DS 800 mg-160 mg tablet take 1 tablet by oral route every 12 hours 06/03 completed Prescrib ed Elsewher e: No Locat ion: [facility] [address] odify By: champ leal DateTime : 04/16/19 18 09:30:00 AM Not Available Not Available Not Available NuvaRing 0.12 mg-0.015 mg/24 hr vaginal insert 1 vaginal ring by vaginal route every month leave in place for 3 weeks, remove for 1 week 02/15 completed Prescrib ed Elsewher e: No Locat ion: [facility] [address] odify By: radha Alan nter DateTime : 08/17/19 15 09:30:00 AM Not Available Not Available Not Available Sprintec (28) 0.25 mg-0.035 mg tablet take 1 tablet by oral route every day 08/14 completed Prescrib ed Elsewher e: No Locat ion: [facility] [address] odify By: purnima leal DateTime : 08/22/19 19 10:45:00 AM Not Available Not Available Not Available nitrofura ntoin monohydra te/macroc rystals 100 mg capsule TAKE 1 CAPSULE BY MOUTH EVERY 12 HOURS FOR 5 DAYS 10/02 completed Not Available Not Available Not Available Solosec [address] granules in packet take 1 packet by oral route and sprinkle contents onto applesau ce, yogurt or pudding and take within 30 minutes once 08/14 completed Prescrib ed Elsewher e: No Locat ion: [facility] [address] odify By: jamie Farah ncounter DateTime : 10/07/19 10:46:38 AM Not Available Not Available Not Available Vitals Date Recorded Body height Body mass index (BMI) Body weight Systolic blood pressure Diastolic blood pressure Provider Name and Address Organization Details Last Updated DateTime 08/14/2021 157.48 cm 36.7 kg/m2 49989.63 g 124 mm[Hg] 85 mm[Hg] Bee Perales [facility] 16:24:51 Date Recorded Body height Body mass index (BMI) Body weight Systolic blood pressure Diastolic blood pressure Provider Name and Address Organization Details Last Updated DateTime 08/31/2021 157.48 cm 36.9 kg/m2 23945.22 g 135 mm[Hg] 84 mm[Hg] Helga Gauthier [facility] 10:40:52 Date Recorded Body height Body mass index (BMI) Body weight Provider Name and Address Organization Details Last Updated DateTime 10/02/2022 157.48 cm 37.9 kg/m2 33943.62 g Lian Pratik [facility] 10/02/2022 16:58:58 Date Recorded Systolic blood pressure Diastolic blood pressure Provider Name and Address Organization Details Last Updated DateTime 10/02/2022 130 mm[Hg] 76 mm[Hg] Sylvia Hill, [facility]- [address], [place], [address], [facility] 10/02/2022 17:20:45 Social History Question Answer Notes LastModified by Organizat ion Details LastModified Time Tobacco Smoking Status Never Smoker Bee Perales null, [facility] 08/14/2021 16:26:06 Are You Blind Or Do You Have Difficulty Seeing? No Information n ot available 08/14/2021 In The 14 Days Before Symptom Onset, Have You Had Close Contact With A Laboratory-confirm ed COVID-19 While That Case Was Ill? No Information n ot available 10/02/2022 In The 14 Days Before Symptom Onset, Have You Had Close Contact With A Person Who Is Under Investigation For COVID-19 While That Person Was Ill? No Information not available 10/02/2022 Have You Been To An Area Known To Be High Risk For COVID-19? No Information not available 10/02/2022 Are You Deaf Or Do You Have Serious Difficulty Hearing? No Information not available 08/14/2021 What Type Of Diet Are You Following? REGULAR Information n ot available 08/14/2021 Sex: Unknown Functional Status Question Answer Note LastModified by Organizat ion Details LastModified Time What is your level of alcohol consumption? Occasional Information not available 08/14/2021 Do you have difficulty walking or climbing stairs? No Information not available 08/14/2021 Are you able to walk? YESWOREST Information not available 08/14/2021 Are you able to care for yourself? Yes Information not available 08/14/2021 Do you have difficulty dressing or bathing? No Information not available 08/14/2021 What is your exercise level? Occasional Information not available 08/14/2021 Mental Status None recorded. Family History Nothing Reported Notes:Maternal aunt: Diabete s mellitus Maternal grandfather: Congenital heart disease, Diabetes mellitus, Asthma Maternal grandmother: Diabetes mellitus Medical History Condition Response Allergies (Food, seasonal, environmental ) N Other N Drug/Latex Allergies/Reactions N Blood Transfusion N Breast Cancer N Dermatologic Disorders N Lung Disease N Defects or Inherited Disease N Breast Problem N Gestational Diabetes N Hematologic disorders N Anesthesia Complications N History of STI N Deep Vein Thrombosis N Polycystic ovary syndrome N Anxiety Disorder N Autoimmune disease N Arthritis N Polyps N Infertility N Acid Reflux (GERD) N History of abnormal pap N Cancer N Varicosities N Stroke N Neurologic/Epilepsy N Endometriosis N High Cholesterol N Fibromyalgia N Headaches N Kidney Disease N Heart Problems N Thyroid Problems N Kidney or Bladder Problems N GI Problems N Eating Disorder N Anemia N Art (IVF or FET) N Psychiatric Illness N Ovarian Cancer N Diabetes N Pulmonary (TB, Asthma) N Hepatitis/Liver Disease N No Past Medical History N Eczema N Urinary Tract Infection N Abuse/Domestic Violence N Asthma N Trauma/Violence N Depression/ depression N Heart Disease N Pre-Eclampsia N Hypertension N Osteoporosis N Thrombophilias N Gynecological History Statement/Question Response Flow Moderate Date of LMP 09/19/2022 Was last menstrual period normal Y STIs/STDs Y HPV Vaccine Y Duration of Flow (days) 5 Current Control Method None Are cycles usually normal Y Sexually Active? Y Menses Monthly Y Date of Last Pap Smear 08/31/2021 Sexual Problems? N LMP Approximate Obstetrics History GPAL:G 1 P 1 0 0 1 Type Value Full Term 1 Living 1 Total 1 Past Encounters Encounter ID Performer Location Encounter Start Date Encounter Closed Date Diagnosis/Indication Diagnosis SNOMED-CT Code Diagnosis ICD10 Code Diagnosis Note [id number] LAMAR Howe [place] [address],[place] [address] 08/14/2021 16:07:02 08/14/2021 18:01:27 Urinary symptoms 703020713 R39.9 Noticed urine has an odor x 1 month. No urinary frequency, urgency, or pain with urination. No flank pains or fevers.She is currently at the end of her period.UA today with trace leuks, 3+ blood. Sending for UA and culture.Gi gume only symptom is urine odor, will hold off on treatment until culture results are available. Urine STI testing sent.She is not using control, encouraged a daily vitamin. 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 Venereal d isease screening [id number] Z11.3 [id number] LAMAR Howe [place] [address],[place] [address] 08/31/2021 10:29:09 08/31/2021 13:53:06 Gynecologic examination 51382196 Z01.419 Z11.3 Z11.8 Take Calcium with Vitamin D 1200mg daily if not receiving in daily diet. It is strongly advised to have an annual flu shot and up can obtain at most pharmacies . If you have not had a TDap shot in the last 10 years you should obtain one as well. Discussed with patient & provided with informatio n regarding Gardisil vaccine to prevent the 4 strains for HPV that cause cervical cancer if under age 26. Encourage safe sexual practices, to use condoms and limit partners if not already in a monogamous relationsh ip. Do monthly self breast exams. Have mammogram yearly or every other year depending on family history. BRCA testing is now available for patients with strong genetic history of female cancer. If interested contact the office. Engage in daily exercise of low impact aerobic exercise 45-60 minutes 4-5 times weekly. Avoid tobacco and illicit drugs as well as using moderation with alcohol intake less than 1-2 8 oz beverages daily. This lifestyle behavior pattern will lead to less health conditions and longer life span. If BMI greater than 25 weight watchers or dietary consult advised. Patient received above instructio ns, and questions have been answered. If you have any questions please call or respond to this email. Patient was made aware of the patient portal and may obtain a paper copy of today's plan if desired. WWENo hx of abnormal papsPap done todaySTI testing declinedNo t preventing but not trying, okay if it happens. Does not want BC. Encouraged daily PNVPatient to establish care with [facility] in 1 year for WWE or sooner if needed [id number] Sylvia Hill , [facility] [address] [address] 10/02/2022 16:49:01 10/02/2022 17:23:26 Gynecologic examination [id number] Z01.419 Take Calcium with Vitamin D 1200mg daily if not receiving in daily diet. It is strongly advised to have an annual flu shot and up can obtain at most pharmacies . If you have not had a TDap shot in the last 10 years you should obtain one as well. Discussed with patient & provided with informatio n regarding Gardisil vaccine to prevent the 4 strains for HPV that cause cervical cancer if under age 26. Encourage safe sexual practices, to use condoms and limit partners if not already in a monogamous relationsh ip. Do monthly self breast exams. Have mammogram yearly or every other year depending on family history. BRCA testing is now available for patients with strong genetic history of female cancer. If interested contact the office. Engage in daily exercise of low impact aerobic exercise 45-60 minutes 4-5 times weekly. Avoid tobacco and illicit drugs as well as using moderation with alcohol intake less than 1-2 8 oz beverages daily. This lifestyle behavior pattern will lead to less health conditions and longer life span. If BMI greater than 25 weight watchers or dietary consult advised. Patient received above instructio ns, and questions have been answered. If you have any questions please call or respond to this email. Patient was made aware of the patient portal and may obtain a paper copy of today's plan if desired.Pa p/hpv q3yrs per asccp unless otherwise indicated. STD Screen declinedGe netic Screen discussedC olon Screen naDexa Screen naRoutine Labs PCP Pain in pelvis [id number] R10.2 Random pains in pelvis more on right side than left x 3mos.More with activity.C T scan neg with PCP; but was told a TVUS would be a good idea as well.Will f/u telehealth to discuss results. Pain in axilla [id number] M79.629 Pain right axilla present x 3mosOn/off Thought felt lump but not always thereNot always connected to menses or weeks leading up to menses. [id number] Maximino Jo MD [place] [address] [address] 10/22/2022 10:33:16 10/22/2022 11:12:07 Pain in pelvis [id number] R10.2 [id number] [facility] [address],[place] [address] 10/23/2022 17:31:33 10/24/2022 16:29:03 Pain in pelvis [id number] R10.2 Today we discussed her US which was wnlWe are moving onto possible scar tissue in the area of random discomfort with activity that feels like intense tugging.He r CT scan was wnl.I have advised her she can trial PT for scar tissue mobilizati on; or can see MD for further suggestion s.She voices she does not feel this is so significan t that would need major surgery etc.She would like to give some PT a try.Referr senait ordered & will mail to her home so she can call to schedule. Total time of virtual-ZO OM visit was approx 15 mins with >50% consisting of counseling , education of patient's plan of care. Health Concerns Section Related Observation LastModified by Organization Detai ls LastModified Time None Recorded Concern Status LastModified by Organization Details LastModified Time None Recorded Advance Directives Directive None Recorded Payers Encounter Date Sequence Insurance Name Policy Number Policy Will Covered Member ID Will Member ID Guarantor Name 08/14/2021 1 [place] [id number] Courtney Chew [id number] Juliette Chew 08/31/2021 1 [place] [id number] Courtney Chew [id number] Juliette Chew 10/02/2022 1 [facility] [id number] Juliette Gomez Jeevan [id number] Juliette Jeevan 10/22/2022 1 [facility] [id number] Juliette Gomez Jeevan [id number] Juliette Jeevan 10/23/2022 1 [facility] [id number] Juliette Chew [id number] Juliette Chew Notes Date Note Type Note Provider Name and Address Organization Details Recorded Time 08/14/2021 text/html Here today for S TI testing and strong urine odor LAMAR Howe [address], [place], [address], [facility] 08/14/2021 17:52:44 08/31/2021 text/html Annual GYNReport ed bypatient.Menstrua l cycle:Normal menses Urinary symptoms:No hematuria; No incontinence Vulva:No genital lesion Vagina:Normal vaginal discharge Breast:No breast pain; No breast lump; No nipple discharge Current Contraception:Tomas h control not practiced Sexual complaints:No sexual complaints; No pain during intercourse; Normal libido Menopausal Symptoms:No menopausal symptoms; Normal vaginal lubrication Psychological symptoms:No depression; No anxiety; No PMDD Preventive measures:Encourage self breast examination; Encourage regular exercise; Encourage no tobacco use; Encourage regular mammograms starting age 40 LAMAR Howe [address], [place], [address], [facility] 08/31/2021 13:35:21 10/02/2022 text/html Annual GYNReport ed bypatient.Menstrua l cycle:Normal menses Urinary symptoms:No hematuria; No incontinence Vulva:No genital lesion Vagina:Normal vaginal discharge Breast:No breast pain; No breast lump; No nipple discharge Current Contraception:Sati sfied with current contraception; Condoms Sexual complaints:No sexual complaints; No pain during intercourse; Normal libido Menopausal Symptoms:No menopausal symptoms; Normal vaginal lubrication Psychological symptoms:No depression; No anxiety; No PMDD Preventive measures:Encourage self breast examination; Encourage regular exercise; Encourage no tobacco use; Encourage regular mammograms starting age 40 1. axillary lump/tenderness x 3mos2. Pelvic pain random x 3mos more with activity-had ct scan neg pcp said tvus might be good idea. [facility] [address], [place], [address], [facility] 10/02/2022 17:23:12 10/23/2022 text/html Here today for [facility] review. Phone Consent: This visit was completed via Virtual Visit Zoom due to the restrictions of the COVID-19 pandemic; all issues as below were discussed and addressed but no physical exam was performed. If it was felt that the patient should be evaluated in clinic then they were directed there. The patient verbally consented to this virtual Zoom visit. ROSALINA Anderson [address], [place], [address], [facility] 10/23/2022 18:11:31 OBGyn Episode Ob Episode Information Episode Created Date Number of Fetuses Patient Bloodtype Patient rh Status Prepregnancy Weight lbs Domestic Partner Domestic Partner Phone Father Name Ball Machine Operator Status 08/15/19 22 1 CLOSED Fetus Data First Name Last Name Admitted to NICU Weight (g) Sex Living Outcome Pediatric Complications Fetus ID Race Codes Race Delivery Type Full Term [id number] Primary Franky Calculation Initial Franky Date Initial Exam Date Initial Exam Provider Initial Ultrasound Date Last Menstrual Period Date Ultra Sound Weeks Gestation 0 Eighteen To Twenty Week Franky Update Ultra Sound Date Fundal Height At Umbil Quickening Date Ultra Sound Latest Weeks Gestation Final Franky Confirmed By Final Franky Confirmed Date Final Franky Date Ultra Sound Latest Days Gestation 0 0 Menstrual History Last Menstrual Date Menses Monthly On Bcp Conception Prior Menses Frequency Hcg Plus Date Menarche Onset Age Delivery Information Delivery Date Delivery Type Labor Anesthesia Weeks Gestation Incision Type Labor Labor Length Hrs Delivered By Post Complications Tubal Sterilization Discharge Date Comments 0 Discharge Information Feeding Method Contraceptive Method Maternal HG B and HCT Levels
--- OUTSIDE RECORDS SUMMARY | 2024-07-14 23:34 | XMS_ITS | Referral Summary ---
Author Organization [place] [address] [place] Address [address] [place] [address] Care Team Providers Care Fire Ranger Name Role Phone Unavailable Primary Care Provider Unavailabl e Allergies No known active allergies Medications No known medications Active Problems Problem Noted Date Diagnosed Date NAFLD (nonalcoholic fatty liver disease) 023 Immunizations Immunization Administration Dates Next Due DTaP, Unspecified 06/21/2003, 1,1998,1998, 1998 HPV9 09/14/2013,12/15/2012,10/06/2012 Hep B, Unspecified 1998,1998, 998 HiB 1998,1998,1998 IPV 06/21/2003,07/03/1999,1998 ,1998 MMR 06/21/2003,07/03/1999 Meningococcal ACWY, Unspecified 10/10/2009 PPD TEST 06/11/2016,02/05/2001 Rotavirus, Unspecified 1998,1998, Tdap 10/25/2019,10/10/2009 Varicella 06/10/2008,07/03/1999 Social History Tobacco Use Types Packs/Day Years Used Date Smoking Tobacco: Every Day Cigarettes 0.4 4.4 Started: 02/2020 Smokeless Tobacco: Never Tobacco Cessation:Ready to Q uit: Yes; Counseling Given: Yes AUDIT-C Answer Date Recorded Q1: How often do you have a drink containing alc ohol? 2-3 times a week 09/25/2021 Q2: How many drinks containi ng alcohol do you have on a typical day when you are drinking? 3 or 4 09/25/2021 Frequency of Binge Drinking Not on file 09/02 PHQ-2 Answer Date Recorded PHQ-2 Total Score (If total score is 3 or more points, staff should administer the PHQ-9) 0 04/19/2023 Comments No Sex and Gender Information Value Date Recorded Sex Assigned at Not on file Legal Sex Female 12:33 PM CDT Gender Identity Not on file Sexual Orientation Not on file Last Filed Vital Signs Vital Sign Reading Time Taken Comments Blood Pressure 114/82 07/02/2023 10:57 AM CDT Pulse 78 07/02/2023 10:57 AM CDT Temperature - - Respiratory Rate - - Oxygen Saturation - - Inhaled Oxygen Concentration - - Weight 96.9 kg (213 lb 9.6 oz) 07/02/2023 10:57 AM CDT Height 157.5 cm (5' 2.01 ) 07/02/2023 10:57 AM C DT Body Mass Index 39.06 07/02/2023 10:57 AM CDT Plan of Treatment Not on file Procedures Procedure Name Priority Date/Time Associated Diagnosis Comments HEPATITIS C ANTIBODY Routine 07/11/2023 12:35 PM CDT Encounter for hepatitis C screening test for low risk patient Laboratory examination ordered as part of a complete physical examination HM PAP SMEAR Routine 08/31/2021 from Last 3 Months or Most Recently Relevant to Health Maintenance Results * Hepatitis C antibody Blood (07/11/2023 12:35 PM CDT) Hep C Ab Nonreactive Nonreactive Comment: Interpretive Data Nonreactive: Antibodies to HCV not detected. Does NOT exclude the possibility of recent exposure to HCV. Equivocal: Equivocal for HCV antibodies. Supplemental molecular testing will be automatically performed to determine infection status in accordance with current CDC screening recommendations. Reactive: Positive for HCV antibodies. This may represent current or past HCV infection. Supplemental molecular testing will be automatically performed to determine current infection status in accordance with current CDC screening recommendations. Interpretive data was last revised on 2019. Blood 07/11/2023 12:3 5 PM CDT 07/11/2023 3:47 PM CDT us Alexa Reyes MD LAB MICROBIOLOGY - GEN ERAL ORDERABLES Final Result [facility] [id number] [address] Department [place] [address] * PAP SMEAR (08/31/2021) SCRIBED Pap test negative Comment:care everywhere repo rt 08/31/2021 Historical Provider HEALTH MAINTENANCE Final Result from Last 3 Months or Most Recently Relevant to Health Maintenance Insurance [facility] CHO[facility]US [facility] [employer]
--- OUTSIDE RECORDS SUMMARY | 2024-07-14 23:34 | XMS_ITS | Encounter Summary ---
Author Organization [facility] Address [address] [place] [address] Care Team Providers Care Slip Seat Coverer Name Role Phone Marietta Gay HOUSE SUPERVISOR Primary Care Provider [phone] Encounter Details Date Type Department Care Team (Late Contact Info) Description 07/13/2024 MyChart Message Enc [facility] [place] [facility] [place] [address] [place], [place] [id number] Marietta Gay HOUSE SUPERVISOR [address] [place], [place] [id number] Back pain Social History Tobacco Use Types Packs/Day Years Used Date Smoking Tobacco: Every Day Cigarettes Passive Smoke Exposure: Current Smokeless Tobacco: Never Comments:1 cigarette per day when she gets home from work Alcohol Use Standard Drinks/Week Comments Yes 6.7 (1 standard drink = 0.6 oz p ure alcohol) PHQ-2 Answer Date Recorded Patient Health Questionnaire-2 Score 0 05/15/2024 Comments No Sex and Gender Information Value Date Recorded Sex Assigned at Female 05/15/2024 10:23 AM CDT Legal Sex Female 1:17 PM RADIOLOGY ASST Gender Identity Female 05/15/2024 10:23 AM CDT Sexual Orientation Straight 05/15/2024 10 :23 AM CDT documented as of this encounter Plan of Treatment Upcoming Encounters Date Type Department Care Team (Late st Contact Info) Description 07/16/2024 9:00 AM CDT [facility] [place] [facility] [place] [address] [place], [place] [id number] Marietta Gay, HOUSE SUPERVISOR [address] [place] [address] 07/24/2024 7:40 AM CDT Laboratory Only [facility] [place] [address] [place] [address] Marietta Gay, DEANNE [address] [place] [address] 07/31/2024 10:20 AM CDT [facility] [place] [facility] [place] [address] [place] [address] Marietta Gay, HOUSE SUPERVISOR [address] [place] [address] documented as of this encounter Visit Diagnoses Not on filedocumented in this encounter Additional Health Concerns Assessment Noted Time PHQ-9 Depression Total Score: 7 05/16/19 25 11:27 AM CDT documented as of this encounter Care Teams Slip Seat Coverer Relationship Specialty Start Date End Date Marietta Gay NP [address] [place] [address] PCP - General NURSE PRACTITIONER 05/06/24 documented as of this encounter
--- OUTSIDE RECORDS SUMMARY | 2024-07-14 23:34 | XMS_ITS | Clinical Summary ---
Author Organization [address] Address [address] [place] [phone] Care Team Providers Care Logging Specialist Name Role Phone Unavailable Primary Care Provider [...] Rotavirus, Unspecified 1998,1998, Tdap 10/25/2019,10/10/2009 Varicella 06/10/2008,07/03/1999 Surgical History Surgery Date Site/Laterality Comments SECTION, LOW TRANSVERSE 10/23/2019 WISDOM TOOTH EXTRACTION bottom left Medical History Medical History Date Comments No pertinent past medical history Family History Medical History Relation Name Comments No Known Problems Father Coronary artery disease Maternal Grandfather Diabetes Maternal Grandfather Diabetes Maternal Grandmother Pancreatic cancer Maternal Grandmother Hypertension Mother Diabetes Mother's Sister Other Other father is adopt er. his father hx is unknown Breast cancer Neg Hx Colon cancer Neg Hx Relation Name Status Comments Father Maternal Grandfather Maternal Grandmother Mother Mother's Sister Alive Other Social History Tobacco Use Types Packs/Day Years [...] on file Sexual Orientation Not on file Obstetrics History Last Filed Vital Signs Vital Sign Reading [...] 07/02/2023 10:57 AM CDT Plan of Treatment Health Maintenance Due Date Last Done Comments Pneumococcal vaccine <65 (1 of 2 - PCV) 2017 Cervical Cancer Screening 08/31/2022 08/31/2021 Regular Well Visit/Exam 18-64 09/25/2022 09/25/2021 Depression Screening 04/19/2024 04/19/2023, 09/25/2021, 09/25/2021 Influenza Vaccine (Season Ended) 2024 DTaP/Tdap/Td Vaccine (7 - Td or Tdap) 10/24/2029 10/25/2019, 10/10/2009, 06/21/2003, Additional history exists Varicella Vaccines Completed 06/10/2008, 07/03/1999 HPV Vaccines Completed 09/14/2013, 12/02, 10/06/2012 Hepatitis C Screening Completed 07/11/2023 Procedures Procedure Name Priority Date/Time Associated Diagnosis [...] 5 PM CDT 07/11/2023 3:47 PM CDT Alexa Reyes MD LAB MICROBIOLOGY - GEN ERAL ORDERABLES Final Result [facility] [id number] [address] Department [place] [address] * PAP SMEAR (08/31/2021) SCRIBED Pap test negative Comment:care everywhere repo rt 08/31/2021 Amy Provider HEALTH MAINTENANCE Final Result from Last 3 Months or Most Recently Relevant to Health Maintenance Insurance [facility] CHOICE PLUS [facility] [employer]
[2024-07-14 23:40] VITALS: BP 138/90; PULSE 116; RESP 18; TEMP 36.6; O2SAT 100
--- NOTE | 2024-07-15 00:14 | ED_ITS ---
HPI - Back Pain/Injury General Chief Complaint: Back Pain/Injury Stated Complaint: upper back pain Time Seen by Provider: 07/14/24 23:35 Source: patient Mode of arrival: ambulatory Limitations: no limitations History of Present Illness HPI Narrative: Patient is a 24-year-old female who presents the ED with report of mid back pain. Patient reports she has had intermittent pain since Saturday. She has been taking Tylenol for the pain at home with improvement. She reports pain is worse with movement and taking deep breaths. She denies feeling short of breath, denies dyspnea on exertion. She states pain was improving today, but she picked up her friend's child tonight and developed worsening pain. States pain tonight was fairly severe. She did take Tylenol prior to arrival and reports pain is improved currently. Denies numbness, chest pain, abdominal pain. Related Data Home Medications ?Medication ?Instructions ?Recorded ?Confirmed ?Last Taken ?Type vit no.95-ferrous 1 tablet PO DAILY 04/01/19 10/23/19 Unknown History fumarate 28 mg-folic acid 800 mcg tablet () Allergies Allergy/AdvReac Type Severity Reaction Status Date / Time No Known Allergies Allergy Verified 06/26/22 12:20 Review of Systems Review of Systems: All systems reviewed & are unremarkable except as noted in HPI. All systems reviewed & are unremarkable except as noted in HPI and below PMFSH Past Medical History Medical History Obesity Surgical History Surgical History No pertinent past surgical history Family History Family History Mother Hypertension Grandparent Diabetes mellitus Social History Social History Smoking status: Former smoker Tobacco type: cigarettes Smoking end date: 02/20/19 Additional smoking assessment comments: pt states socially vaped Substance use: never Gender identity (if verbalized by the patient): Female Spiritual care concerns: No Exam Narrative: GENERAL: Mildly anxious appearing, well-nourished, non-toxic, in no acute distress. HEAD: Normocephalic, atraumatic. RESPIRATORY: Airway patent, respirations nonlabored. Clear to auscultation bilaterally, no rales, rhonchi, wheezing. No focal lung sounds. CARDIOVASCULAR: Regular rate and rhythm without murmurs, rubs, or gallops. MUSCULOSKELETAL: Moves all extremities. No gross deformities. No midline spinal tenderness throughout lumbar or thoracic region. Tenderness to palpation along left midthoracic paraspinal musculature, reproducing pain. Sensation intact. No palpable bony deformities or step-offs. SKIN: Warm, dry, normal color. NEURO: A&O X3. Speech clear. Cranial nerves II-XII grossly intact. Steady gait. No ataxic movements. PSYCHIATRIC: Appropriate mood and affect. Normal interaction. Course Vital Signs Vital signs: Vital Signs Temperature 97.8 F 07/14/24 23:40 Pulse Rate 116 H 07/14/24 23:40 Respiratory Rate 18 07/14/24 23:40 Blood Pressure 138/90 07/14/24 23:40 Pulse Oximetry 100 07/14/24 23:40 Temperature 97.8 F 07/14/24 23:40 Pulse Rate 116 H 07/14/24 23:40 Respiratory Rate 18 07/14/24 23:40 Blood Pressure 138/90 07/14/24 23:40 Pulse Oximetry 100 07/14/24 23:40 MDM - Back Pain/Injury MDM Narrative Medical decision making narrative: Patient?s pain is positional and localized to paraspinal muscles without signs of cord compression or cauda equina. Normal neurologic exams. No red flag symptoms. No symptoms or signs to suggest pain is referred from abdominal or source. No signs or symptoms to suggest pulmonary etiology. Patient denies shortness of breath or dyspnea with exertion. No evidence of DVT on exam. Oxygen is stable on room air, 100%. Low suspicion for PE. Offered to perform CXR and patiet politely declined. Patient states pain was improving on its own, but became worsening after picking up a child. Took Tylenol prior to arrival repo rts pain is improved significantly at this time. She did not want any further workup. I offered to give Toradol, lidocaine patch here, however patient politely declined. Will discharge with short course of muscle relaxers and lidocaine patches for home use. Patient ambulates with a steady gait and is felt to be a reasonable candidate for continued outpatient management. Recommended follow-up with PCP for further evaluation. Patient given strict return precautions. Discharged in stable condition. Medical Records Attestation: I reviewed the patient's medical records. Discharge Plan Discharge Clinical Impression: Thoracic back sprain Qualifiers: Encounter type: initial encounter Qualified Code(s): S23.9XXA - Sprain of unspecified parts of thorax, initial encounter Patient Disposition: Home Condition: Stable Instructions: Antibiotic Form, Thoracic Back Strain (ED) Additional Instructions: Continue Tylenol and Ibuprofen/naproxen as needed for pain. You may use ice/heat, lidocaine patches to area of pain. Take muscle relaxers as needed and prescribed. Recommend taking these at night as they may cause sedation. Do not drive, operate heavy machinery, drink alcohol while on muscle relaxers as this may cause further sedation. Follow-up with your primary care doctor for further evaluation if needed. Return to the ED if you experience worsening or severe pain, injury, numbness in arms or legs, shortness of breath, difficulty breathing, unable to keep down food or drink, or any other symptoms of concern. Patient Language: Turkmen Prescriptions: New lidocaine 5 % adhesive patch,medicated 1 patch topical DAILY Qty: 15 0RF Rx Instructions: leave on most painful area for up to 12 hrs cyclobenzaprine 5 mg tablet 5 mg PO TID PRN (Reason: muscle spasm) Qty: 15 0RF No Action PNV cmb#95-ferrous fumarate-FA [] 28 mg iron- 800 mcg Tablet 1 tablet PO DAILY docusate sodium 100 mg Capsule 100 mg PO BID 20 Days Qty: 40 0RF acetaminophen [Mapap (acetaminophen)] 325 mg Tablet 650 mg PO Q6H PRN (Reason: Mild Pain (1-3)) 10 Days Qty: 20 0RF hydrocodone-acetaminophen 5-325 mg Tablet 1 tablet PO Q4-6H MDD 6 tabs PRN (Reason: Moderate Pain (4-6)) 3 Days Qty: 15 0RF ibuprofen 600 mg Tablet 600 mg PO Q6H PRN (Reason: Cramping) 10 Days Qty: 40 0RF nitrofurantoin monohyd/m-cryst [Macrobid] 100 mg capsule 100 mg PO Q12H 5 Days Qty: 10 0RF Rx Instructions: must administer with a meal/food ondansetron 4 mg tablet,disintegrating 4 mg PO Q8H PRN (Reason: nausea and vomiting) Qty: 7 0RF Follow-up/Referrals: PHYSICIAN,TIE TAPE MACHINE OPERATOR [Primary Care Provider] - Zackery Dunlap MD [Physician] - (PRIMARY CARE) Time of Disposition: 00:21
== END 2024-07-15 00:24 | disposition home or self-care (01) ==
PROVIDERS: Emergency Provider Physician Assistant
DX: S23.9XXA Sprain of unspecified parts of thorax, initial encounter (principal); X58.XXXA Exposure to other specified factors, initial encounter
CPT/HCPCS: 99283